=== PATIENT | female | born 1940 | race Caucasian/White ===

== ENCOUNTER 2020-01-17 12:41 | Outpatient (CLI) | payer MEDICARE, SELFPAY ==
--- NOTE | 2020-01-17 12:47 | US_ITS ---
WS: [id number] ULTRASOUND THYROID TECHNIQUE: Ultrasound of the thyroid. CLINICAL INFORMATION: MULTINODULAR GOITER COMPARISON: None. FINDINGS: Thyroid: Prior right lobe thyroidectomy. This is unchanged from previous. Normal thyroid isthmus. Lef t thyroid lobe with cystic and solid nodule lower pole measuring 4.9 x 2.1 x 3.5 mm decreased in size from previous. Additional smaller hypoechoic nodules in the left thyroid measuring 3 to 4 mm are stable. These likel y represent incidental colloid cyst. Left thyroid lobe: 2.7 cm x 0.8 cm x 0.7 cm. Isthmus: 0.3 mm. Cervical lymphadenopathy: None. US/US thyroid [id number] IMPRESSION: 1. Stable right thyroidectomy. 2. Previously described cystic and solid complex lower pole left thyroid nodul e measuring has decreased in size today measuring 3.5 x 2.1 x 4.9 mm. Previousl y this measured approximately 11 x 9 mm. Recommend 12 month follow-up. 3. 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
== END 2020-01-17 12:42 | disposition home or self-care (01) ==
LOC: RAD 12:45
PROVIDERS: PCP Internal Medicine; Visit Provider Internal Medicine
DX: E04.2 Nontoxic multinodular goiter (principal)
CPT/HCPCS: 76536

== ENCOUNTER 2020-09-25 19:07 | Inpatient (IN) | payer MEDICARE, SELFPAY ==
[2020-09-25] VITALS (8 sets, daily range): BP systolic 160–178; BP diastolic 73–91; PULSE 95–108; RESP 14–18; TEMP 36.7–37.1; O2SAT 90–92; BMI 22.0
--- NOTE | 2020-09-25 19:13 | XR_ITS ---
WS: [id number] Exam: XR hip LT 2-3V wo/w pel* [id number] Date/Time of Exam: 09/25/2020 7:17 PM Reason For Exam: hip pain There is a subcapital fracture of the left hip. There is superior and anterior displacement of the fe moral neck. 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 Osteopenia. XR/XR hip LT 2-3V wo/w pel* [id number] IMPRESSION: 1. Displaced subcapital fracture of the left hip.
--- NOTE | 2020-09-25 19:14 | XR_ITS ---
WS: [id number] Exam: XR chest 1V portable [id number] Date/Time of Exam: 09/25/2020 7:17 PM Reason For Exam: cp Comparison 05/07/2017. The lungs are fully expanded and clear. Cardiac enlargement unchanged. Large hiatal hernia. No pleura l effusions. The mediastinum is normal in contour. Bony structures are intact. Monitoring leads super impose the chest. XR/XR chest 1V portable [id number] IMPRESSION: 1. Cardiac enlargement unchanged. 2. Large hiatal hernia. 3. No acute process noted.
--- NOTE | 2020-09-25 19:15 | ED_ITS ---
HPI - Fall General: Chief Complaint: Fall Stated Complaint: fall Time Seen by Provider: 09/25/20 19:07 Source: patient and EMS Mode of arrival: EMS Limitations: no limitations History of Present Illness: HPI Narrative: 80-year-old female states that she tripped and fell roughly an hour ago. States she landed on her left hip. She states she has not been able to stand since this happened and has hip pain she rates a 7 out of 10. She denies hitting her head. She denies any other injuries. She states it is worse with any type of movement and improved with rest. Associated symptoms-after fall: Denies abdominal pain, chest pain, headache(s) or neck pain Review of Systems Const: Denies: fever(s), chills, body aches or change in appetite Eyes: Denies: blurry vision or eye discomfort ENMT: Denies: throat pain or dental pain Card: Denies: chest pain Resp: Denies: dyspnea GI: Denies: abdominal pain, nausea, vomiting or diarrhea : Denies: dysuria Musc: Reports: joint pain; Denies: neck pain or back pain Skin/Breast: Denies: rash Neuro: Denies: headache(s) Psych: Denies: depression Kendell/Lymph: Denies: easy bruising All/Imm: Denies: urticaria PFSH ED PFSH: Medical History (Updated 09/25/20 @ 19:47 by Bolivar Encarnacion MD) Benign essential HTN GERD (gastroesophageal reflux disease) Hypothyroidism, unspecified Nontoxic multinodular goiter Family History Other Heart disease Thyroid disease Social History Smoking and tobacco status: former smoker Alcohol intake: never Physical Exam Const: COMMON NORMALS: no acute distress, patient oriented x3 and healthy appearing HENMT: COMMON NORMALS: normocephalic and atraumatic HEAD & SCALP: normocephalic and atraumatic Eye: COMMON NORMALS: Equal, round and reactive pupils present and EOMs intact bilaterally PUPIL: Yes Equal, round and reactive pupils present Neck/C-Spine: COMMON NORMALS: full ROM and supple Chest: COMMONS NORMALS: normal inspection of the chest and normal palpation of entire chest wall Resp: COMMON NORMALS: normal respiratory effort, No retractions, No use of accessory muscles and clear to auscultation bilaterally AUSCULTATION: clear to auscultation bilaterally Cardio: COMMON NORMALS: regular rate, regular rhythm and No murmurs present (Cardio) RATE: regular rate RHYTHM: regular rhythm GI: COMMON NORMALS: Normal to inspection, nondistended, normoactive bowel sounds present, Soft to palpation, non-tender and no masses PALPATION: Yes Soft to palpation Back/Pelvis: OTHER: Tenderness over left hip with some slight rotation. Distal pulses are intact. Extremity: COMMON NORMALS: normal to inspection and full ROM Neuro: COMMON NORMALS: patient oriented x3, moves all extremities and no focal motor deficits Psych: COMMON NORMALS: mental status grossly normal, Normal thought process present and cooperative THOUGHT PROCESS: Normal thought process present Skin: COMMON NORMALS: no rashes or lesions noted and no wounds GENERAL SKIN EXAM: no rashes or lesions noted Course Vital Signs: Vital signs: Vital Signs Temperature 98.1 F 09/25/20 19:08 Pulse Rate 95 09/25/20 19:08 Respiratory Rate 14 09/25/20 19:08 Blood Pressure 175/87 09/25/20 19:18 Pulse Oximetry 92 09/25/20 19:08 MDM - Fall MDM Narrative: Medical decision making narrative: Patient presents here with a left hip fracture from a fall. She has no signs of any other injuries. I spoke to the hospitalist and will admit. I spoke to the orthopedist who is consulted. Imaging Data^: CXR: Attestation: I personally reviewed and interpreted this imaging study as follows: My impression: no acute abnormality xr L hip: Attestation: I personally reviewed and interpreted this imaging study as follows: My impression: L hip fx Discharge Plan Discharge Patient Disposition: Admitted As Inpatient Clinical Impression: Fall Closed left hip fracture Qualifiers: Encounter type: initial encounter Qualified Code(s): S72.002A - Fracture of unspecified part of neck of left femur, initial encounter for closed fracture Condition: Stable Coding Level of Care Code ED Business Intelligence Developer for Brian Fwarsen Exam Comprehensive
--- NOTE | 2020-09-25 19:32 | ECG_ITS ---
[facility] Test Date: 2020-09-25 Pat Name: Melisa Carrillo Department: Room: Gender: Female Director [employer]: : 1940 Requested By: Bolivar Encarnacion Order Number: [id number] Amilcar MD: Logan Merida M.D. Measurements Intervals [place] Rate: 105 P: 48 AL: 251 QRS: 46 QRSD: 84 T: 51 QT: 309 QTc: 408 Interpretive Statements SINUS TACHYCARDIA WITH FIRST DEGREE AV BLOCK No previous ECG available for comparison Electronically Signed On 09-26-2020 18:01:17 SIPHONER by Logan Merida M.D. [email or web address] [email or web address] [id number]
--- NOTE | 2020-09-25 19:57 | P.HP_ITS ---
Providers/Chief Complaint Primary Care Provider: Howard Castro MD Chief Complaint: fall History of Present Illness Melisa Carrillo is a 80 year old female who presented today after sustaining a fall at home. Patient is stating that she lost her balance when she was maneuvering around her plant pots, she lost her balance because there was a towel underneath the pot which she did not notice while turning and fell on left side of her pelvis on the wooden floor. She did not experience any chest pain shortness of breath nausea, vomiting seizure-like activities before this event. She was awake, no syncopal event was noticed. Diagnostics in the ER revealed left femoral neck fracture, chest x-ray shows hiatal hernia no signs of consolidation prominent vascular markings. He is afebrile, tachycardic and tachypneic complaining of left hip pain 06/08 she had received fentanyl and currently getting 4 mg of morphine in the ER. Dr. Anna has been consulted Review of Systems 2 Const: Denies: fever(s) or chills Eyes: Denies: change in vision ENMT: Denies: throat pain Card: Denies: chest pain Resp: Denies: dyspnea GI: Denies: abdominal pain : Denies: flank pain Musc: Denies: neck pain Skin/Breast: Denies: rash Neuro: Denies: headache(s) Psych: Denies: anxiety Endo: Denies: polyuria Kendell/Lymph: Denies: easy bruising All/Imm: Denies: urticaria Medications/Allergies Home Medications Medication Instructions Recorded Confirmed Last Taken Type albuterol sulfate 90 mcg/actuation 1 inh INHALATION QID PRN #3 device 11/29/19 Unknown Rx aerosol inhaler calcitonin (salmon) 200 1 spray INTRANASAL (ALT) DAILY #3 11/29/19 Unknown Rx unit/actuation nasal spray each budesonide-formoterol HFA 160 INHALATION 01/17/20 01/17/20 Unknown History mcg-4.5 mcg/actuation aerosol inhaler amlodipine 2.5 mg tablet 2.5 mg PO DAILY #90 tab 02/06/20 Unknown Rx levothyroxine 75 mcg tablet 75 mcg PO DAILY #90 tab 02/06/20 Unknown Rx meloxicam 15 mg tablet 15 mg PO DAILY #90 tab 02/06/20 Unknown Rx potassium chloride 10 mEq 10 meq PO DAILY 90 Days #90 tab 02/06/20 Unknown Rx tablet,extended release raloxifene 60 mg tablet 60 mg PO DAILY #90 tab 02/06/20 Unknown Rx simvastatin 20 mg tablet 20 mg PO DAILY #90 tab 02/06/20 Unknown Rx triamterene 37.5 1 cap PO DAILY #90 cap 02/06/20 Unknown Rx mg-hydrochlorothiazide 25 mg capsule Allergies Allergy/AdvReac Type Severity Reaction Status Date / Time No Known Allergies Allergy Unverified 01/17/20 10:59 PFSH Acute PFSH: Medical History Benign essential HTN Emphysema, unspecified GERD (gastroesophageal reflux disease) Hyperlipidemia Hypothyroidism, unspecified Nontoxic multinodular goiter Primary osteoarthritis, unspecified hand Surgical History H/O thyroidectomy History of cholecystectomy Family History Other Heart disease Thyroid disease Social History Smoking and tobacco status: former smoker Alcohol intake: never Vitals/I&O/Wt Last Vital Signs Temp 98.1 F 09/25/20 19:08 Pulse 95 09/25/20 19:08 Resp 14 09/25/20 19:08 BP 175/87 09/25/20 19:18 Pulse Ox 92 09/25/20 19:08 Weight last 48 hrs Weight 65.771 kg Physical Exam Narrative: EXAM NARRATIVE: elderly female Currently complaining of pain in her left hip area Sinus tachycardia and tachycardia S1, S2 No murmur appreciated no signs of heart failure No acute respite distress Abdomen soft nontender bowel sound present No vascular compromise of lower extremities Left leg slightly rotated outwards, limited range of motion No neurological deficit Awake alert oriented x3 GCS 15 Lower extremity no edema gangrene or ulcer Data : 09/25/20 19:00 09/25/20 19:00 A&P Assessment and plan (1) Closed left hip fracture: Status: Acute Qualifiers: Encounter type: initial encounter Qualified Code(s): S72.002A - Fracture of unspecified part of neck of left femur, initial encounter for closed fracture (2) Fall: Status: Acute Additional A&P Information Left femoral neck fracture N.p.o., Dr. Butcher consulted We will keep her on D5 half-normal saline maintenance fluid Dilaudid for analgesia along bowel regimen DVT prophylaxis to be decided by orthopedic surgeon after surgery currently I would use SCDs RCRI class I risk no need of preoperative cardiac evaluation Hold levothyroxine for now continue after surgery No signs of syncope, no signs of stroke this is a mechanical fall Hypertension and tachycardia secondary to excessive pain at the time my evaluation she was complaining 06/08, morphine 4 mg was given, I would use Dilaudid along bowel regimen for now DVT prophylaxis SCDs for now N.p.o. Full code Attestations Medical Necessity Statement*: Anticipating stay in the hospital cross more than 2 midnights needs surgical evaluation and intervention Time Spent in Patient Care: (>than 50% of time spent in counselling and/or direct pt care on unit) . 50mins Coding Level of Care Code Acute [facility] Worker for Maryg Fwd Diagnoses Closed left hip fracture S72.002A Encounter type: initial encounter Fall W19.XXXA
[2020-09-25 20:00] LABS: Basophils # 0.1 10^3/uL (0.0-0.1); Basophils % 0.6 %; Eosinophils # 0.2 10^3/uL (0.0-0.8); Eosinophils % 1.4 %; Hematocrit 39.7 % (37.0-47.0); Hemoglobin 12.5 g/dL (11.5-15.3); Lymphocytes # 1.7 10^3/uL (0.8-4.8); Lymphocytes % 16.7 %; Mean Corpuscular HGB Conc 31.5 g/dL (30.0-36.0); Mean Corpuscular Hemoglobin 28.4 pg (28.0-34.0); Mean Corpuscular Volume 90.2 fL (81-99); Mean Platelet Volume 10.6 fL (7.4-10.4); Monocytes # 0.7 10^3/uL (0.2-0.9); Monocytes % 7.1 %; Neutrophils % 73.1 %; Nucleated Red Blood Cells % 0 %; Platelet Count 334 10^3/cmm (130-400); Red Cell Distribution Width 14.6 % (12.1-15.1); White Blood Count 10.4 10^3/uL (4.0-10.0)
[2020-09-25 20:12] LABS: INR 1.09 (0.8-1.2)
[2020-09-25 20:27] LABS: Alanine Aminotransferase 18 U/L (0-33); Albumin Level 3.9 g/dL (3.5-5.2); Alkaline Phosphatase 76 IU/L (35-105); Anion Gap 16.7 (5-19); Aspartate Amino Transferase 27 U/L (0-32); Blood Urea Nitrogen 32 mg/dL (8-23); Calcium 9.3 mg/dL (8.5-10.5); Carbon Dioxide 24 mmol/L (22-29); Chloride 103 mmol/L (98-107); Globulin 3.7 g/dL (1.3-4.6); Glucose 108 mg/dL (65-115); Osmolality Calculated 297 mOsm/kg (285-295); Potassium 3.7 mmol/L (3.5-5.1); Sodium 140 mmol/L (136-145); Total Bilirubin 0.3 mg/dL (0.15-1.2); Total Protein 7.6 g/dL (6.6-8.7)
[2020-09-25] MEDS: morphine 4 mg/mL SDV 1 mL IVP ×2 (20:27→21:29)
[2020-09-25 21:04] LABS: SARS Covid-2 Antigen Negative (Negative)
--- NOTE | 2020-09-25 21:32 | PC.NURSE ---
Oxygen withdrawn for pt to drink water. O2 sats dropped from 92% to 83% - pt states she in not on oxygen at home. Pt oxygen reapplied at [facility].
--- NOTE | 2020-09-25 21:54 | PC.NURSE ---
Report called to Beth ASTUDILLO - all questions answered. Pt transported on [facility] via [facility].
[2020-09-25] MEDS: HYDROmorphone 1 mg/mL INJ 1 mL IVP (22:53)
[2020-09-25] MEDS: dextrose 5%-sod chloride 0.45% 1,000 ML 30 ML IV (22:53)
[2020-09-25 23:25] LABS: Bilirubin Urine Neg (Negative); Blood Urine Neg (Negative); Glucose Urine UA Norm (Normal); Ketones Urine Negative (Negative); Protein Urine Neg (Negative); Urine Appearance Cloudy (CLEAR); Urine Color Yellow (Yellow); Urobilinogen Urine Norm (Negative)
[2020-09-25 23:26] LABS: Add Urine Culture? Yes; Add Urine Microscopic? YES; Bacteria Urine 4+ /hpf; Leukocyte Esterase Urine Negative (Negative); Nitrate Urine Positive (Negative)
[2020-09-26] VITALS (35 sets, daily range): BP systolic 108–176; BP diastolic 55–113; PULSE 75–116; RESP 15–29; TEMP 36.6–37; O2SAT 87–99
[2020-09-26 02:38] LABS: Basophils % 0.3 %; Eosinophils # 0.1 10^3/uL (0.0-0.8); Eosinophils % 0.5 %; Hematocrit 38.1 % (37.0-47.0); Hemoglobin 11.9 g/dL (11.5-15.3); Lymphocytes # 0.8 10^3/uL (0.8-4.8); Lymphocytes % 7.5 %; Mean Corpuscular HGB Conc 31.2 g/dL (30.0-36.0); Mean Corpuscular Hemoglobin 28.1 pg (28.0-34.0); Mean Corpuscular Volume 89.9 fL (81-99); Mean Platelet Volume 9.9 fL (7.4-10.4); Monocytes # 0.5 10^3/uL (0.2-0.9); Monocytes % 4.9 %; Neutrophils # 9.16 10^3/uL (1.8-7.7); Neutrophils % 86.4 %; Nucleated Red Blood Cells % 0 %; Platelet Count 257 10^3/cmm (130-400); Red Blood Count 4.24 10^6/uL (4.1-5.3); Red Cell Distribution Width 14.5 % (12.1-15.1); White Blood Count 10.6 10^3/uL (4.0-10.0)
[2020-09-26] MEDS: HYDROmorphone 1 mg/mL INJ 1 mL 2 MG IVP ×2 (02:40→08:34)
[2020-09-26 03:08] LABS: Anion Gap 13.6 (5-19); Blood Urea Nitrogen 30 mg/dL (8-23); Calcium 8.9 mg/dL (8.5-10.5); Carbon Dioxide 28 mmol/L (22-29); Chloride 104 mmol/L (98-107); Glucose 142 mg/dL (65-115); Osmolality Calculated 303 mOsm/kg (285-295); Potassium 3.6 mmol/L (3.5-5.1); Sodium 142 mmol/L (136-145)
[2020-09-26] MEDS: ondansetron 2 mg/ML SDV 2 mL 4 MG IVP ×3 (03:33→17:24)
[2020-09-26] MEDS: sennosides-docusate Tablet 1 TAB PO (08:27)
[2020-09-26] MEDS: amlodipine 5 mg Tablet 2.5 MG PO (08:27)
--- NOTE | 2020-09-26 09:39 | PC.NURSE ---
Berenice ASTUDILLO from Surgery here to take patient to Surgery. Patient transferred to Preop via bed.
--- NOTE | 2020-09-26 09:42 | P.PN_ITS ---
Subjective Subjective: Interval history: Patient going off the floor in OR Medications: Reviewed: Yes Vitals/I&O/Wt Last Vital Signs Temp 97.8 F 09/26/20 21:13 Pulse 94 09/26/20 21:13 Resp 18 09/26/20 21:13 BP 113/60 09/26/20 21:13 Pulse Ox 92 09/26/20 21:13 09/26/20 09/26/20 09/27/20 14:59 22:59 06:59 Intake Total 160 / 160 2200.0 / 2360.0 Output Total 100 / 100 Balance 160 / 160 2100.0 / 2260.0 Weight last 48 hrs Weight 65.771 kg Physical Exam Narrative: EXAM NARRATIVE: Full examination not performed Urinary Catheter Management^: Cardenas: Cath Placed During This Visit: yes Reason for Continuing Indwelling Catheter: Required Immobilization for Trauma or Surgery or Anesthesia Urinary Catheter Date of Insertion: 09/25/20 Urinary Catheter Time of Insertion: 23:04 Data : 09/26/20 02:20 09/26/20 02:20 A&P Assessment and plan (1) Closed left hip fracture: Status: Deleted Qualifiers: Encounter type: initial encounter Qualified Code(s): S72.002A - Fracture of unspecified part of neck of left femur, initial encounter for closed fracture (2) Fall: Status: Acute Additional A&P Information Left femoral neck fracture - In OR - Follow up labs in am - Resume medication in am - pain control DVT ppx - per ortho Full code Attestations Medical Necessity Statement*: Wiill continue hospitalizaton for managemnet of post op Time Spent in Patient Care: less than 15 minutes Coding Level of Care Code Acute Superintendent Storage Area for Chg Fwd Diagnoses Closed left hip fracture S72.002A Encounter type: initial encounter Fall W19.XXXA
--- NOTE | 2020-09-26 09:46 | PM.CONSULT ---
Providers/Reason For Consult Consulting Physican/Specialty*: Lucho Anna MD: Orthopedic surgery Reason for Consult*: Left femoral neck fracture Attending Physician: Shannon Gabriel Primary Care Provider: Howard Castro MD History of Present Illness History of Present Illness Melisa Carrillo is a 80 year old female tripped over a towel around [facility] in her house landing on her left hip. She described immediate pain and was transferred to our emergency room. Radiographs revealed displaced femoral neck fracture. She has been admitted to medicine for management of her fracture. Patient was previously ambulatory and actually even dance for recreation. She did not use a walker or cane. Meds/Allergies Home Medications and Allergies Home Medications Medication Instructions Recorded Confirmed Last Taken Type albuterol sulfate 90 mcg/actuation 1 inh INHALATION QID PRN #3 device 11/29/19 09/26/20 Unknown Rx aerosol inhaler calcitonin (salmon) 200 1 spray INTRANASAL (ALT) DAILY #3 11/29/19 09/26/20 Unknown Rx unit/actuation nasal spray each budesonide-formoterol HFA 160 2 puff INHALATION BID 01/17/20 09/26/20 Unknown History mcg-4.5 mcg/actuation aerosol inhaler amlodipine 2.5 mg PO DAILY@09/26/20 09/26/20 Unknown History calcium carbonate [Calcium 600] 600 mg PO BID 09/26/20 09/26/20 Unknown History levothyroxine [Synthroid] 75 mcg PO DAILY@09/26/20 09/26/20 Unknown History loratadine [Claritin] 20 mg PO DAILY@09/26/20 09/26/20 Unknown History meloxicam 15 mg PO DAILY@09/26/20 09/26/20 Unknown History multivitamin 1 tab PO DAILY@09/26/20 09/26/20 Unknown History potassium chloride 10 meq PO DAILY@09/26/20 09/26/20 Unknown History raloxifene 60 mg PO DAILY@09/26/20 09/26/20 Unknown History simvastatin 20 mg PO DAILY@09/26/20 09/26/20 Unknown History triamterene-hydrochlorothiazid 1 cap PO DAILY@09/26/20 09/26/20 Unknown History Allergies Allergy/AdvReac Type Severity Reaction Status Date / Time No Known Allergies Allergy Verified 01/28/21 09:05 Current Medications Current Medications Generic Name Dose Route Start Last Admin Trade Name Freq PRN Reason Stop Dose Admin Amlodipine Besylate 2.5 mg 09/26/20 09:00 09/26/20 08:27 Amlodipine 5 Mg Tablet PO 2.5 mg DAILY SHARA Administration Hydromorphone HCl 2 mg 09/26/20 02:03 09/26/20 08:34 Hydromorphone 1 Mg/Ml Inj 1 Ml IVP 2 mg Q4H PRN Administration pain Dextrose/Sodium Chloride 1,000 mls @ 30 mls/hr 09/25/20 22:00 09/25/20 22:53 Dextrose 5%-Sod Chloride 0.45% IV 30 mls/hr .Q24H SHARA Administration Ondansetron HCl 4 mg 09/26/20 03:29 09/26/20 08:31 Ondansetron 2 Mg/Ml Sdv 2 Ml IVP 4 mg Q6H PRN Administration NAUSEA AND VOMITING Senna/Docusate Sodium 1 tab 09/26/20 09:00 09/26/20 08:27 Sennosides-Docusate Tablet PO 1 tab DAILY SHARA Administration PFSH Acute PFSH: Medical History Benign essential HTN Emphysema, unspecified GERD (gastroesophageal reflux disease) Hyperlipidemia Hypothyroidism, unspecified Nontoxic multinodular goiter Primary osteoarthritis, unspecified hand Surgical History H/O thyroidectomy History of cholecystectomy Family History Other Heart disease Thyroid disease Social History Smoking and tobacco status: former smoker Alcohol intake: never Vitals/I&O/Wt Last Vital Signs Temp 98.3 F 09/26/20 07:24 Pulse 82 09/26/20 07:24 Resp 20 H 09/26/20 08:34 BP 136/71 09/26/20 07:24 Pulse Ox 92 09/26/20 07:24 09/25/20 09/26/20 09/26/20 22:59 06:59 14:59 Output Total 450 / 450 Balance -450 / -450 Weight last 48 hrs Weight 145 lb Physical Exam Narrative: EXAM NARRATIVE: Melisa is a pleasant elderly female in no acute distress. She answers questions appropriately She has shortening and external rotation of the left hip. There is exquisite pain with motion of the left hip. No pain with motion or palpation of her upper extremities or right lower extremities No tenderness over her cervical thoracic or lumbar spine. She will flex extend her toes and her ankle on the left. Strong left dorsalis pedis pulse. Urinary Catheter Management^: Cardenas: Cath Placed During This Visit: yes Reason for Continuing Indwelling Catheter: Required Immobilization for Trauma or Surgery or Anesthesia Urinary Catheter Date of Insertion: 09/25/20 Urinary Catheter Time of Insertion: 23:04 Data Imaging^: Xray Ortho: My impression: I personally reviewed radiographs of the left hip from last night. The patient has a displaced left femoral neck fracture A&P Assessment and plan (1) Left displaced femoral neck fracture: I discussed options with the patient and granddaughter Kely.. I told them possible treatments for displaced femoral neck fracture would include nonoperative treatment, open reduction internal fixation, or hemiarthroplasty. I told them without treatment the patient would experience ongoing of pain that would limit mobility. This would require pain medications and place her at medical risks due to prolonged periods of bed rest. I discussed the possibility of open reduction internal fixation with pins. I warned them that for displaced fractures of the risk of nonunion and malunion is exceptionally high. In addition there is a high likelihood that the blood applied to the femoral head has been disrupted and that even with successful stabilization of the fracture the femoral head will go on to . I finally discussed the possibility of hemiarthroplasty. I think this would give the patient the greatest chance of being immediately mobilized. I discussed risk of a bleeding and a possible need for blood products. I discussed risk of deep venous thromboses and pulmonary emboli and the need for anticoagulation. I discussed the use of the TXA that may be utilized to diminish blood loss. I discussed risk of component failure and loosening that could require revision. I discussed the risk of dislocation and a bipolar arthroplasty which is quite unlikely. After a long discussion of options they agree to hemiarthroplasty of the hip. I told him ultimately the patient will likely require senior living placement. Status: Acute Coding Level of Care Code Acute Furnace Attendant for [facility] Fwd Diagnoses Left displaced femoral neck fracture S72.002J
--- NOTE | 2020-09-26 10:14 | ANES.PREANE2 ---
Pre-Anesthetic Assessment Pre-Anesthetic Assessment: Height/Weight: Height 1.73 m Weight 65.771 kg Temp Pulse Resp BP Pulse Ox 98.6 F 84 18 143/75 94 09/26/20 09:54 09/26/20 09:54 09/26/20 09:54 09/26/20 09:54 09/26/20 09:54 Proposed Procedure: Operation Date: 09/26/20 13:10 Proposed Procedures p Hemiarthroplasty Hip(Left) - Lucho Anna MD Was Beta Rodrigo taken within 24 hours: N/A Last intake: Intake Last Liquid Date 09/25/20 Last Liquid Time 17:00 Last Solid Date 09/25/20 Last Solid Time 13:00 Social: Social History: No alcohol and No tobacco Comment: h/o smoking Exam: Pre-Anes Outpt Exam: alert, oriented x 3 and regular rate & rhythm Airway: Submandibular: WNL Cervical ROM: WNL MP: 2 Dentition: False Pulmonary: Pulmonary: COPD CV/HEM: CV/HEM: HTN GI: GI: GERD Metabolic: Metabolic: Thyroid Anesthetic Plan: ASA status: 3 Anesthesia: Regional (specify below) Other: SAB Risk of > 500 ml blood loss (7ml/kg in children): Yes, adequate IV access and fluids planned Meds/Allergies Current Medications: Current Medications Generic Name Dose Route Start Last Admin Trade Name Freq PRN Reason Stop Dose Admin Amlodipine Besylat e 2.5 mg 09/26/20 09:00 09/26/20 08:27 Amlodipine 5 Mg Tablet PO 2.5 mg DAILY SHARA Administration Hydromorphone HCl 2 mg 09/26/20 02:03 09/26/20 08:34 Hydromorphone 1 Mg/Ml Inj 1 Ml IVP 2 mg Q4H PRN Administration pain Dextrose/Sodium Ch loride 1,000 mls @ 30 ml s/hr 09/25/20 22:00 09/25/20 22:53 Dextrose 5%-Sod Chloride 0.45% IV 30 mls/hr .Q24H SHARA Administration Ondansetron HCl 4 mg 09/26/20 03:29 09/26/20 08:31 Ondansetron 2 Mg /Ml Sdv 2 Ml IVP 4 mg Q6H PRN Administration NAUSEA AND VOMITI NG Senna/Docusate Sod ium 1 tab 09/26/20 09:00 09/26/20 08:27 Sennosides-Docus ate Tablet PO 1 tab DAILY SHARA Administration PFSH Anesthesia PFSH: Medical History Benign essential HTN Emphysema, unspecified GERD (gastroesophageal reflux disease) Hyperlipidemia Hypothyroidism, unspecified Nontoxic multinodular goiter Primary osteoarthritis, unspecified hand Surgical History H/O thyroidectomy History of cholecystectomy Family History Other Heart disease Thyroid disease Social History Smoking and tobacco status: former smoker Alcohol intake: never Data Anesthesia CBC & Chem 7: 09/26/20 02:20 09/26/20 02:20 Other Labs: Laboratory Results - last 48 hr 09/25/20 09/25/20 09/25/20 19:00 19:00 19:00 WBC 10.4 H RBC 4.40 Hgb 12.5 Hct 39.7 MCV 90.2 MCH 28.4 MCHC 31.5 RDW 14.6 Plt Count 334 MPV 10.6 H Neut % (Auto) 73.1 Lymph % (Auto) 16.7 [place] % (Auto) 7.1 Eos % (Auto) 1.4 Baso % (Auto) 0.6 Neut # (Auto) 7.60 Lymph # (Auto) 1.7 [place] # (Auto) 0.7 Eos # (Auto) 0.2 Baso # (Auto) 0.1 Nucleated RBC % (auto) 0 Nucleated RBCs # 0.0 PT 14.40 INR 1.09 Sodium 140 Potassium 3.7 Chloride 103 Carbon Dioxide 24 Anion Gap 16.7 BUN 32 H Creatinine 1.5 H GFR Calculation Not Reportable Glucose 108 Calculated Osmolality 297 H Calcium 9.3 Total Bilirubin 0.3 AST 27 ALT 18 Alkaline Phosphatase 76 Total Protein 7.6 Albumin 3.9 Globulin 3.7 Urine Color Urine Appearance Urine pH Ur Specific [place] Urine Protein Urine Glucose (UA) Urine Ketones Urine Blood Urine Nitrate Urine Bilirubin Urine Urobilinogen Ur Leukocyte Esterase Urine RBC Urine WBC Ur Squamous Epith Cells Amorphous Sediment Urine Bacteria SARS-CoV-2 Ag (Rapid) 09/25/20 09/25/20 09/26/20 20:00 22:50 02:20 WBC 10.6 H RBC 4.24 Hgb 11.9 Hct 38.1 MCV 89.9 MCH 28.1 MCHC 31.2 RDW 14.5 Plt Count 257 MPV 9.9 Neut % (Auto) 86.4 Lymph % (Auto) 7.5 [place] % (Auto) 4.9 Eos % (Auto) 0.5 Baso % (Auto) 0.3 Neut # (Auto) 9.16 H Lymph # (Auto) 0.8 [place] # (Auto) 0.5 Eos # (Auto) 0.1 Baso # (Auto) 0.0 Nucleated RBC % (auto) 0 Nucleated RBCs # 0.0 PT INR Sodium Potassium Chloride Carbon Dioxide Anion Gap BUN Creatinine GFR Calculation Glucose Calculated Osmolality Calcium Total Bilirubin AST ALT Alkaline Phosphatase Total Protein Albumin Globulin Urine Color Yellow Urine Appearance Cloudy A Urine pH 7.0 Ur Specific [place] 1.000 L Urine Protein Neg Urine Glucose (UA) Norm Urine Ketones Negative Urine Blood Neg Urine Nitrate Positive H Urine Bilirubin Neg Urine Urobilinogen Norm Ur Leukocyte Esterase Negative Urine RBC None Urine WBC 5-10 H Ur Squamous Epith Cells None Amorphous Sediment Not Reportable Urine Bacteria 4+ H SARS-CoV-2 Ag (Rapid) Negative 09/26/20 02:20 WBC RBC Hgb Hct MCV MCH MCHC RDW Plt Count MPV Neut % (Auto) Lymph % (Auto) [place] % (Auto) Eos % (Auto) Baso % (Auto) Neut # (Auto) Lymph # (Auto) [place] # (Auto) Eos # (Auto) Baso # (Auto) Nucleated RBC % (auto) Nucleated RBCs # PT INR Sodium 142 Potassium 3.6 Chloride 104 Carbon Dioxide 28 Anion Gap 13.6 BUN 30 H Creatinine 1.3 H GFR Calculation Not Reportable Glucose 142 H Calculated Osmolality 303 H Calcium 8.9 Total Bilirubin AST ALT Alkaline Phosphatase Total Protein Albumin Globulin Urine Color Urine Appearance Urine pH Ur Specific [place] Urine Protein Urine Glucose (UA) Urine Ketones Urine Blood Urine Nitrate Urine Bilirubin Urine Urobilinogen Ur Leukocyte Esterase Urine RBC Urine WBC Ur Squamous Epith Cells Amorphous Sediment Urine Bacteria SARS-CoV-2 Ag (Rapid) Cardiac Studies: No Data to Display
[2020-09-26] MEDS: sodium chloride 0.9% 1,000 ML 30 ML IV (10:15)
--- NOTE | 2020-09-26 10:59 | PC.CHAP ---
Pastoral Care Encounter/Spiritual Assessment Type of Contact [] Declined hi low truck driver visit [] Patient/Family/Request visit [] Outpatient visit [X] Follow-up visit [] Physician referral [] Code/Alert [] Routine visit [] Staff referral [] Actively dying [] Patient sleeping [] Family support [] [] Out of room [] Palliative care [] [] Receiving care in room [] Pre-surgical visit [] Trauma [] Long length of stay [] ICU visit [x] Other: in surgery Relational/Emotional Strength [] Patient feels connected with others/family/visitors/staff [] Distress [] Loneliness/isolation [] Abandonment Spirituality of Patient [] Person of Karyn [] Attends Sabianism of their Karyn [] Believes in Prayer [] Reads Bible or Shinto materials [] There are Spiritual issues to be addressed Valet Cashier Interventions [] Prayer [] Active listening [] Non-anxious presence [] Spiritual/emotional support [] Crisis/trauma care [] Spiritual counseling [] Bereavement support [] Provided bereavement packet [] Provided Bible/devotional materials [] Provided toy/stuffed animal, coloring book to patient or family member [] Provided Communion [] Anointing/[place] [] Salvation [] Completed spiritual assessment [] Other: Impact on Illness or Injury [] Angry [] Fearful [] Anxious [] Often cries [] Exhaustion [] Unable to work [] Unable to attend zoroastrian [] Unable to walk/stand [] Unable to read [] Unable to drive [] Unable to eat/drink [] Unable to sleep [] Unable to be with family [] Patient intubated [] Other: Summary in surgery Time spent with patient 5 mins
--- NOTE | 2020-09-26 15:55 | XR_ITS ---
WS: [id number] Exam: XR pelvis 1-2V* [id number] Date/Time of Exam: 09/26/2020 3:59 PM Reason For Exam: Total hip arthroplasty A left hip prosthesis has been placed. Postoperative changes in the adjacent soft tissues. The pelvis is intact. Mild DJD of the right hip. XR/XR pelvis 1-2V* [id number] IMPRESSION: 1. Recent placement of a left hip prosthesis. Postoperative soft tissue changes .
--- NOTE | 2020-09-26 15:56 | PM.OP ---
Operative Report Date of procedure: September 26, 2020 Pre-op Diagnosis: Left displaced femoral neck fracture Post-op diagnosis: same Post-op Findings: Same Procedure Done: Left bipolar hip Implants: Nay 1) Securefit SHAFFER collored stem, size 7 2) 45 bipolar femoral head 3) 28mm/standard neck length femoral head Pathology: none sent Surgeon: Lucho Anna Anesthesia: Nerve Block (Spinal) Estimated blood loss (mL): 100 Findings: Patient had a displaced fracture of the left femoral neck Condition: stable Disposition: PACU Procedure: The patient was taken to the operating room and a final l anesthesia was provided by the anesthesia service. They were given 2 g of Ancef. and positioned in the lateral position with the hip exposed. A 10 cm long incision was made over the greater trochanter with a scalpel blade. Dissection was carried down through the fascia noris to the greater trochanter. The anterior two thirds of gluteus medius and minimus were elevated off the greater trochanter with electrocautery. The capsule was divided T like fashion. The hip was externally rotated and the neck brought up into the wound. An oscillating saw was really used to resect the neck just above the level of the lesser trochanter. The femoral head was removed and the acetabulumt sized to a 45 mm bipolar head. Sequential reaming and broaching of the canal was accomplished up to a size 7. A size 7 [place] Securefit SHAFFER stem was press fit into place. A trial reduction with a standard mm neck provided excellent stability. The final head and neck were placed and the hip reduced. The anterior capsule were reapproximated with 1 Ethibond. The gluteus medius and minimus were repaired through the greater trochanter with 5 Ethibond and reinforced with 1 Ethibond. The fascia noris was closed with 0 Stratafix. The subcutaneous tissues were closed with 2-0 Stratafixl. The skin was closed with a running 3-0 Stratafix. Sterile dressings were applied. The patient was placed in abduction pillow and taken recovery room in stable condition.
[2020-09-26] MEDS: meperidine 50 mg/mL INJ 12.5 MG IVP (16:19)
--- NOTE | 2020-09-26 16:26 | P.ANESPOST_ITS ---
Inpatient post-anesthesia follow up: Airway intact: Yes Vital signs: Temperature 98.2 F Pulse Rate [Monito r] 95 Pulse Rate 93 Respiratory Rate 24 Blood Pressure [Ri ght Arm] 175/87 Blood Pressure 136/79 Pulse Oximetry 91 Oxygen Delivery Me thod Nasal Cannula Oxygen Flow Rate 3 Fraction of Inspir ed Oxygen Hydration adequate: Yes Nausea and vomiting: No Pain level: 1 [place] tional Comments: Some shivering and difficulty reading SpO2, patient denies SOB.
[2020-09-26] MEDS: ipratropium-albuterol 3 mL Neb INHALATION (17:00)
[2020-09-26] MEDS: glycopyrrolate 0.2 mg/mL SDV 2 mL IV (17:00)
--- NOTE | 2020-09-26 17:18 | SUR.PHASEI ---
1052 PT TO PACU AWAKE ALERT ON 4LNC SPINAL ANESTHESIA WITH MAC, PT TALKATIVE RESP 20-24 SATS 90% SPINAL LEVEL ASSESSED PT HAS NORMAL SENSATION TO T-12 LEVEL WITH GROSS TOE MOVEMENT BILAT ABD PILLOW IN PLACE FIRST ICE TO LT HIP DRESSING WHICH IS D/I DISTAL FOOT PINK WARM CONTINOUS O2 SAT PROBE TO EXT WITH GOOD WAVEFORM, PT SHIVERING AND C/O OF COLD, DENIES PAIN AND NAUSEA, WARM BLANKETS X 4 TO PT. 1610 X RAY DONE, UNABLE TO GET ACCURATE SAT READING PT IS SHIVERING, UNCONTROLLED AFTER X RAY, DR ROE AT BEDSIDE, ORDERS FOR DEMERAL IV IF SHIVERING CONTINUES, 1619 PT CONTINUES TO SHIVER SEE MED GIVEN PT SATS ALSO READING 85% ON 5LNC 1625 SEE ALBUTEROL NEB GIVEN ORDERED WITH 8L MASK SATS QUICKLY UP TO 97% NO DISTRESS NOTED. BILAT LUNGS CLEAR WITH DIMINISHED BASES AND DIMINISHED EXPIRATIONS TO ALL LOBES. 1645 SATS NOT MAINTAINED ON 5LN NC PT ENCOURAGED TO SLOW RESP AND PURSED SELINA EXHALE TEACHING DONE, DR ROE AT BEDSIDE, PT PLACED ON 7L OXY MASK , SATS QUICKLY UP AND DUONEB TX ORDERED AND ALSO ROBINAL IVP 1700 SEE MEDS GIVEN ORDERED PT AWAKE ALERT TALKATIVE DENIES ANY SHORTNESS OF BREATH, PT NO SHIVERING NOW, GOOD WAVEFORM NOTED TO O2 SAT PROBE, TO MULTIPLE EXTRMITIES, NOW WITH 8L AEROSOL MASK AT 97%, 1727 PT GIVEN ZOFRAN EARLIER FOR NAUSEA WHICH PT NOW STATES IS BETTER, PT SATS 94% ON4LNC NOW , NO DISTRESS , LUNG SOUNDS UNCHANGED , REPORT CALLED AND UPDATED PT TO FLOOR PER BED 1740 PT TO ROOM ASKING FOR HER CELL PHONE, AND SIPS OF SODA, PT VERY ALERT AND TALKATIVE WITH STAFF, LT HIP DRESSING D/I WITH FIRST ICE IN PLACE, HANDOFF AT BEDSIDE WITH CHAUNCEY ASTUDILLO.
[2020-09-26] MEDS: sodium chloride 0.9% 1,000 ML 100 ML IV (18:13)
[2020-09-26] MEDS: albuterol 8 gm MDI 1 PUFF INHALATION ×2 (18:13→20:44)
[2020-09-26] MEDS: CELEcoxib 200 mg Capsule PO (18:13)
[2020-09-26] MEDS: acetaminophen 500 mg Tablet 1000 MG PO (18:13)
[2020-09-26] MEDS: gabapentin 300 mg Capsule PO (18:13)
[2020-09-26] MEDS: sennosides-docusate Tablet 2 TAB PO (18:13)
[2020-09-26] MEDS: famotidine 20 mg Tablet PO (21:09)
[2020-09-26] MEDS: HYDROcodone-acetaminophen 5-325 mg Tablet 1 TAB PO (21:09)
[2020-09-27] VITALS (9 sets, daily range): BP systolic 116–167; BP diastolic 66–76; PULSE 67–89; RESP 16–18; TEMP 36.3–36.8; O2SAT 91–98
[2020-09-27] MEDS: acetaminophen 500 mg Tablet 1000 MG PO ×2 (03:01→09:45)
[2020-09-27] MEDS: sodium chloride 0.9% 1,000 ML 100 ML IV (03:02)
[2020-09-27] MEDS: levothyroxine 75 mcg Tablet PO (05:33)
[2020-09-27] MEDS: CELEcoxib 200 mg Capsule PO ×2 (05:33→17:47)
--- NOTE | 2020-09-27 07:52 | P.PN_ITS ---
Subjective Subjective: Interval history: Pain controlled with meds. Good po intake. Cardenas dc'd Vitals/I&O/Wt Last Vital Signs Temp 98.1 F 09/27/20 04:00 Pulse 80 09/27/20 04:00 Resp 17 09/27/20 04:00 BP 116/66 09/27/20 04:00 Pulse Ox 91 09/27/20 04:00 09/26/20 09/27/20 09/27/20 22:59 06:59 14:59 Intake Total 2150.0 / 2310.0 1551.667 / 3861.667 Output Total 100 / 100 650 / 750 Balance 2050.0 / 2210.0 901.667 / 3111.667 Weight last 48 hrs Weight 145 lb Physical Exam Narrative: EXAM NARRATIVE: Left hp dressing clean and dry. Minimal thigh sw elling Urinary Catheter Management^: Cardenas: Cath Placed During This Visit: yes, but has since been removed by the nurse Reason for Continuing Indwelling Catheter: Perioperative Use in Selected Surgeries Urinary Catheter Date of Insertion: 09/25/20 Urinary Catheter Time of Insertion: 23:04 Date Urinary Catheter Removed: 09/27/20 Time Urinary Catheter Discontinued: 06:00 Data : 09/26/20 02:20 09/26/20 02:20 A&P Assessment and plan (1) Left displaced femoral neck fracture: Status: Resolved (2) Postoperative state: Continue to mobilize with therapy. Patient lives alone and will need SNF unless she can arrange for family or friends to provided care at home. Status: Acute Attestations Medical Necessity Statement*: As per medicine Coding Level of Care Code Acute Electrical Logging Engineer for Brian Traore Diagnoses Left displaced femoral neck fracture S72.002A Postoperative state Z98.890
[2020-09-27] MEDS: albuterol 8 gm MDI 1 PUFF INHALATION ×3 (07:58→20:32)
[2020-09-27] MEDS: loratadine 10 mg Tablet 20 MG PO (08:07)
[2020-09-27] MEDS: famotidine 20 mg Tablet PO ×2 (08:07→17:47)
[2020-09-27] MEDS: HYDROcodone-acetaminophen 5-325 mg Tablet 1 TAB PO ×3 (08:07→21:15)
[2020-09-27] MEDS: potassium chloride ER 10 mEq Tablet PO (08:07)
[2020-09-27] MEDS: atorvastatin 40 mg Tablet 20 MG PO (08:08)
[2020-09-27] MEDS: multivitamin therapeutic Tablet 1 TAB PO (08:08)
[2020-09-27] MEDS: gabapentin 300 mg Capsule PO ×2 (08:08→17:47)
[2020-09-27] MEDS: amlodipine 5 mg Tablet 2.5 MG PO (08:17)
[2020-09-27] MEDS: sennosides-docusate Tablet 2 TAB PO ×2 (08:17→17:47)
[2020-09-27] MEDS: calcitonin nasal 200 unit/spray 3.7 mL Btl 1 SPRAY NOSTRIL-AL (09:44)
[2020-09-27] MEDS: lanolin oint 7 gm 1 APPLIC TOPICAL (10:34)
--- NOTE | 2020-09-27 18:35 | PM.PN ---
Subjective Subjective: Interval history: patient was complaining of heartburn. No additional complaints overnight. No fever, chills, nausea vomiting. Medications: Reviewed: Yes Vitals/I&O/Wt Last Vital Signs Temp 97.3 F L 09/27/20 16:00 Pulse 75 09/27/20 16:00 Resp 18 09/27/20 16:00 BP 167/74 09/27/20 16:00 Pulse Ox 92 09/27/20 16:00 09/27/20 09/27/20 09/27/20 06:59 14:59 22:59 Intake Total 1551.667 / 3861.667 100 / 100 360 / 460 Output Total 650 / 750 300 / 300 Balance 901.667 / 3111.667 -200 / -200 360 / 160 Weight last 48 hrs Weight 65.771 kg Physical Exam Narrative: EXAM NARRATIVE: General -alert awake and oriented HEENT -grossly unremarkable Chest-clear to auscultation bilaterally CVS -regular rate rhythm Abdomen -soft nontender nondistended Extremities -postop pain Urinary Catheter Management^: Cardenas: Cath Placed During This Visit: yes, but has since been removed by the nurse Reason for Continuing Indwelling Catheter: Perioperative Use in Selected Surgeries Urinary Catheter Date of Insertion: 09/25/20 Urinary Catheter Time of Insertion: 23:04 Date Urinary Catheter Removed: 09/27/20 Time Urinary Catheter Discontinued: 06:00 Data : 09/26/20 02:20 09/26/20 02:20 Micro: Microbiology 09/25/20 22:50 Urine Culture - Preliminary Urine,Clean Catch Gram Negative Rods A&P Assessment and plan (1) Closed left hip fracture: Status: Deleted Qualifiers: Encounter type: initial encounter Qualified Code(s): S72.002A - Fracture of unspecified part of neck of left femur, initial encounter for closed fracture (2) Fall: Status: Acute Additional A&P Information Left femoral neck fracture - POD 1 - Follow up labs in am - pain control - PT/OT consult Acute kidney injury - Creatinine 1.3 - IVF at 100cc/hr - Repeat CMP in am - Renal dosing. Hypertension - Resume Norvasc GERD - Protonix 40 mg PO daily DVT ppx - per ortho Full code Attestations Medical Necessity Statement*: will require further hospitalization for management of acute renal failure, postop and placement Time Spent in Patient Care: Greater than 35 minutes (>than 50% of time spent in counselling and/or direct pt care on unit). Coding Level of Care Code Acute Lawn Sprinkler Servicer for Maryg Fwd Diagnoses Closed left hip fracture S72.002A Encounter type: initial encounter Fall W19.XXXA
[2020-09-27] MEDS: enoxaparin 40 mg/0.4 mL Syringe SUBCUT (21:15)
[2020-09-28] VITALS (9 sets, daily range): BP systolic 110–172; BP diastolic 57–82; PULSE 60–98; RESP 18–20; TEMP 36.4–36.9; O2SAT 92–98
[2020-09-28] MEDS: acetaminophen 500 mg Tablet 1000 MG PO ×3 (03:18→17:03)
[2020-09-28] MEDS: HYDROcodone-acetaminophen 5-325 mg Tablet 1 TAB PO (03:48)
--- NOTE | 2020-09-28 05:25 | NUR.SHIFT ---
Patient has complained of pain, which is well controlled by hydrocodone x2. Patient has been afibrile. Good pulse to lower extremities and warmth. Patient is unable to have O2 titrated due to current oxygen demands.
[2020-09-28 05:35] LABS: Basophils # 0.1 10^3/uL (0.0-0.1); Basophils % 0.7 %; Eosinophils # 0.2 10^3/uL (0.0-0.8); Hematocrit 31.3 % (37.0-47.0); Hemoglobin 9.9 g/dL (11.5-15.3); Lymphocytes # 0.6 10^3/uL (0.8-4.8); Lymphocytes % 4.9 %; Mean Corpuscular HGB Conc 31.6 g/dL (30.0-36.0); Mean Corpuscular Hemoglobin 28.3 pg (28.0-34.0); Mean Corpuscular Volume 89.4 fL (81-99); Mean Platelet Volume 10.4 fL (7.4-10.4); Monocytes # 0.8 10^3/uL (0.2-0.9); Monocytes % 6.5 %; Neutrophils # 10.26 10^3/uL (1.8-7.7); Neutrophils % 85.5 %; Nucleated Red Blood Cells % 0 %; Platelet Count 196 10^3/cmm (130-400); Red Cell Distribution Width 14.4 % (12.1-15.1)
[2020-09-28 05:59] LABS: Alanine Aminotransferase 9 U/L (0-33); Albumin Level 2.9 g/dL (3.5-5.2); Alkaline Phosphatase 65 IU/L (35-105); Anion Gap 15.3 (5-19); Aspartate Amino Transferase 32 U/L (0-32); Blood Urea Nitrogen 32 mg/dL (8-23); Calcium 8.5 mg/dL (8.5-10.5); Carbon Dioxide 23 mmol/L (22-29); Chloride 104 mmol/L (98-107); Globulin 2.8 g/dL (1.3-4.6); Glucose 103 mg/dL (65-115); Osmolality Calculated 295 mOsm/kg (285-295); Potassium 3.3 mmol/L (3.5-5.1); Sodium 139 mmol/L (136-145); Total Bilirubin 0.4 mg/dL (0.15-1.2); Total Protein 5.7 g/dL (6.6-8.7)
[2020-09-28] MEDS: levothyroxine 75 mcg Tablet PO (07:02)
[2020-09-28] MEDS: CELEcoxib 200 mg Capsule PO ×2 (07:02→08:34)
[2020-09-28] MEDS: albuterol 8 gm MDI 1 PUFF INHALATION ×2 (08:03→20:40)
[2020-09-28] MEDS: sennosides-docusate Tablet 2 TAB PO ×2 (08:33→17:04)
[2020-09-28] MEDS: amlodipine 5 mg Tablet 2.5 MG PO (08:33)
[2020-09-28] MEDS: atorvastatin 40 mg Tablet 20 MG PO (08:34)
[2020-09-28] MEDS: famotidine 20 mg Tablet PO (08:34)
[2020-09-28] MEDS: multivitamin therapeutic Tablet 1 TAB PO (08:34)
[2020-09-28] MEDS: loratadine 10 mg Tablet 20 MG PO (08:34)
[2020-09-28] MEDS: potassium chloride ER 10 mEq Tablet PO (08:34)
[2020-09-28] MEDS: calcitonin nasal 200 unit/spray 3.7 mL Btl 1 SPRAY NOSTRIL-AL (08:38)
[2020-09-28] MEDS: cefTRIAXone 1,000 MG in sodium chloride 0.9% (plus) 50 ML 100 MG IV (09:07)
[2020-09-28] MEDS: gabapentin 300 mg Capsule PO ×2 (09:22→17:03)
--- NOTE | 2020-09-28 10:41 | PM.PN ---
Subjective Subjective: Interval history: No overnight issues. Vitals/I&O/Wt Last Vital Signs Temp 98.8 F 09/29/20 07:23 Pulse 90 09/29/20 07:38 Resp 18 09/29/20 07:38 BP 124/63 09/29/20 07:23 Pulse Ox 91 09/29/20 07:38 09/28/20 09/29/20 09/29/20 22:59 06:59 14:59 Intake Total 320 / 610 100 / 710 240 / 240 Output Total 300 / 500 Balance 320 / 410 -200 / 210 240 / 240 Physical Exam Narrative: EXAM NARRATIVE: General -alert awake and oriented HEENT -grossly unremarkable Chest-clear to auscultation bilaterally CVS -regular rate rhythm Abdomen -soft nontender nondistended Extremities -postop pain Urinary Catheter Management^: Cardenas: Cath Placed During This Visit: yes, but has since been removed by the nurse Reason for Continuing Indwelling Catheter: Perioperative Use in Selected Surgeries Urinary Catheter Date of Insertion: 09/25/20 Urinary Catheter Time of Insertion: 23:04 Date Urinary Catheter Removed: 09/27/20 Time Urinary Catheter Discontinued: 06:00 Data : 09/28/20 05:10 09/28/20 05:10 Micro: Microbiology 09/25/20 22:50 Urine Culture - Final Urine,Clean Catch Escherichia coli A&P Assessment and plan (1) Closed left hip fracture: Status: Deleted Qualifiers: Encounter type: initial encounter Qualified Code(s): S72.002A - Fracture of unspecified part of neck of left femur, initial encounter for closed fracture (2) Fall: Status: Acute Additional A&P Information Left femoral neck fracture - POD 2 - Follow up labs in am - pain control - PT/OT consult Acute kidney injury - Creatinine 1.3 - IVF at 100cc/hr - Repeat CMP in am - Renal dosing. - Improving Hypertension - Resume Norvasc GERD - Protonix 40 mg PO daily DVT ppx - per ortho Full code Attestations Medical Necessity Statement*: will continue post op management Coding Level of Care Code Acute Senior User Experience Architect for Chg Fwd Diagnoses Closed left hip fracture S72.002A Encounter type: initial encounter Fall W19.XXXA
--- NOTE | 2020-09-28 14:23 | PC.SOCIAL ---
IM followup explained and copy provided to patient. She verbalized understanding.
[2020-09-28] MEDS: enoxaparin 40 mg/0.4 mL Syringe SUBCUT (22:17)
[2020-09-29] VITALS (9 sets, daily range): BP systolic 117–162; BP diastolic 58–88; PULSE 81–93; RESP 14–18; TEMP 36.5–37.1; O2SAT 84–94
[2020-09-29] MEDS: acetaminophen 500 mg Tablet 1000 MG PO ×3 (04:03→17:05)
--- NOTE | 2020-09-29 05:55 | PC.NURSE ---
Patient has had good feeling and blood flow to her lower left extremity. Patient was able to get out of bed and to the commode with minimal assistance. Pain appears to be well controlled by Tylenol.
[2020-09-29] MEDS: levothyroxine 75 mcg Tablet PO (06:21)
[2020-09-29] MEDS: CELEcoxib 200 mg Capsule PO ×2 (06:21→17:05)
[2020-09-29] MEDS: albuterol 8 gm MDI 1 PUFF INHALATION ×2 (07:37→21:16)
[2020-09-29] MEDS: cefTRIAXone 1,000 MG in sodium chloride 0.9% (plus) 50 ML 100 MG IV (08:53)
[2020-09-29] MEDS: loratadine 10 mg Tablet 20 MG PO (08:54)
[2020-09-29] MEDS: potassium chloride ER 10 mEq Tablet PO (08:54)
[2020-09-29] MEDS: amlodipine 5 mg Tablet 2.5 MG PO (08:54)
[2020-09-29] MEDS: gabapentin 300 mg Capsule PO ×2 (08:55→17:05)
[2020-09-29] MEDS: multivitamin therapeutic Tablet 1 TAB PO (08:55)
[2020-09-29] MEDS: atorvastatin 40 mg Tablet 20 MG PO (08:55)
[2020-09-29] MEDS: calcitonin nasal 200 unit/spray 3.7 mL Btl 1 SPRAY NOSTRIL-AL (11:32)
--- NOTE | 2020-09-29 14:44 | P.PN_ITS ---
Subjective Subjective: Interval history: Doing better today, off oxygen, no fever or chills, no nausea or vomiting Medications: Reviewed: Yes Vitals/I&O/Wt Last Vital Signs Temp 98.1 F 09/29/20 11:30 Pulse 81 09/29/20 11:30 Resp 18 09/29/20 11:30 BP 134/75 09/29/20 11:30 Pulse Ox 91 09/29/20 11:30 09/28/20 09/29/20 09/29/20 22:59 06:59 14:59 Intake Total 320 / 610 100 / 710 290 / 290 Output Total 300 / 500 Balance 320 / 410 -200 / 210 290 / 290 Physical Exam Narrative: EXAM NARRATIVE: General -alert awake and oriented HEENT -grossly unremarkable Chest-clear to auscultation bilaterally CVS -regular rate rhythm Abdomen -soft nontender nondistended Extremities -postop pain Urinary Catheter Management^: Cardenas: Cath Placed During This Visit: yes, but has since been removed by the nurse Reason for Continuing Indwelling Catheter: Perioperative Use in Selected Surgeries Urinary Catheter Date of Insertion: 09/25/20 Urinary Catheter Time of Insertion: 23:04 Date Urinary Catheter Removed: 09/27/20 Time Urinary Catheter Discontinued: 06:00 Data : 09/28/20 05:10 09/28/20 05:10 Micro: Microbiology 09/25/20 22:50 Urine Culture - Final Urine,Clean Catch Escherichia coli A&P Assessment and plan (1) Closed left hip fracture: Status: Deleted Qualifiers: Encounter type: initial encounter Qualified Code(s): S72.002A - Fracture of unspecified part of neck of left femur, initial encounter for closed fracture (2) Fall: Status: Acute Additional A&P Information Left femoral neck fracture - POD 3 ORIF - Follow up labs in am - pain control - PT/OT consult Acute kidney injury on likely CKD stage 3 - Creatinine 1.3 - > 1.3 - Repeat CMP in am - Renal dosing. - Stable E-coli UTI - Rocephin 1g IV daily - [place]-sensitive Hypertension - Resume Norvasc GERD - PPI DVT ppx - per ortho Full code Attestations Medical Necessity Statement*: Continue hospitalization for management of post op hip repair needing placement Time Spent in Patient Care: Greater than 35 minutes Coding Level of Care Code Acute Conditioner Tumbler Operator for Chg Fwd Diagnoses Closed left hip fracture S72.002A Encounter type: initial encounter Fall W19.XXXA
--- NOTE | 2020-09-29 15:56 | PC.CHAP ---
Pastoral Care Encounter/Spiritual Assessment Type of Contact [] Declined phlebotomist associate visit [] Patient/Family/Request visit [] Outpatient visit [] Follow-up visit [] Physician referral [] Code/Alert [XX] Routine visit [] Staff referral [] Actively dying [] Patient sleeping [] Family support [] [] Out of room [] Palliative care [] [] Receiving care in room [] Pre-surgical visit [] Trauma [] Long length of stay [] ICU visit [] Other: Relational/Emotional Strength [XX] Patient feels connected with others/family/visitors/staff [] Distress [] Loneliness/isolation [] Abandonment Spirituality of Patient [XX] Person of Karyn [] Attends Samaritan of their Karyn [XX] Believes in Prayer [XX] Reads Bible or Catholic materials [] There are Spiritual issues to be addressed Family Centered Specialist Interventions [XX] Prayer [XX] Active listening [XX] Non-anxious presence [XX] Spiritual/emotional support [] Crisis/trauma care [] Spiritual counseling [] Bereavement support [] Provided bereavement packet [XX] Provided Bible/devotional materials [] Provided toy/stuffed animal, coloring book to patient or family member [] Provided Communion [] Anointing/[place] [] Salvation [XX] Completed spiritual assessment [] Other: Impact on Illness or Injury [] Angry [] Fearful [] Anxious [] Often cries [] Exhaustion [] Unable to work [] Unable to attend buddhist [] Unable to walk/stand [] Unable to read [] Unable to drive [] Unable to eat/drink [] Unable to sleep [] Unable to be with family [] Patient intubated [] Other: Summary: Pt was in good spirits. Granddaughter was visiting her today. Pt hopeful to be discharged soon to rehab. Prayed with patient and provided devotional materials. Time spent with patient: 15 mins
--- NOTE | 2020-09-29 18:34 | PC.NURSE ---
[address] Gabriel that patient states she takes omeprazole once daily at 0600. We have it scheduled twice daily. can we change the first time to 0600 and then 1800. vd message from Dr Gabriel, okay to change times. content writer put orders in for time change.
--- NOTE | 2020-09-29 18:40 | PC.NURSE ---
notified Dr Gbariel that patient is requesting something for restless leg syndrome.
[2020-09-29] MEDS: enoxaparin 40 mg/0.4 mL Syringe SUBCUT (21:24)
[2020-09-30] VITALS (8 sets, daily range): BP systolic 110–173; BP diastolic 67–80; PULSE 82–96; RESP 17–18; TEMP 36.4–36.9; O2SAT 92–97
[2020-09-30] MEDS: acetaminophen 500 mg Tablet 1000 MG PO ×3 (02:40→17:21)
[2020-09-30] MEDS: CELEcoxib 200 mg Capsule PO ×2 (05:43→17:21)
[2020-09-30] MEDS: levothyroxine 75 mcg Tablet PO (05:43)
--- NOTE | 2020-09-30 05:46 | PC.NURSE ---
SHIFT SUMMARY Pt had a good night. Is very pleasant. Gets up to BSC with minimal assist. Uses walker and does very well. Had BM this am. Has not had anything for pain other than the scheduled po Tylenol ordered. Dressing to lat left hip/thigh D&I. Has swelling and some pinkness to hip. Neurovascular check is WNL. ABD pillow in place. SCD's to BLE.
[2020-09-30] MEDS: albuterol 8 gm MDI 1 PUFF INHALATION ×2 (08:13→20:20)
[2020-09-30] MEDS: calcitonin nasal 200 unit/spray 3.7 mL Btl 1 SPRAY NOSTRIL-AL (08:30)
[2020-09-30] MEDS: atorvastatin 40 mg Tablet 20 MG PO (08:30)
[2020-09-30] MEDS: potassium chloride ER 10 mEq Tablet PO (08:31)
[2020-09-30] MEDS: amlodipine 5 mg Tablet 2.5 MG PO (08:31)
[2020-09-30] MEDS: loratadine 10 mg Tablet 20 MG PO (08:31)
[2020-09-30] MEDS: sennosides-docusate Tablet 2 TAB PO (08:31)
[2020-09-30] MEDS: cefTRIAXone 1,000 MG in sodium chloride 0.9% (plus) 50 ML 100 MG IV (08:31)
[2020-09-30] MEDS: multivitamin therapeutic Tablet 1 TAB PO (08:31)
[2020-09-30] MEDS: gabapentin 300 mg Capsule PO ×2 (08:34→17:21)
--- NOTE | 2020-09-30 10:41 | P.PN_ITS ---
Subjective Subjective: Interval history: No acute event overnight.Patient was seen comfortably sitting in chair. Her Vitals have been reviewed. Medications: Reviewed: Yes Vitals/I&O/Wt Last Vital Signs Temp 98.4 F 09/30/20 07:43 Pulse 92 09/30/20 08:14 Resp 18 09/30/20 08:14 BP 144/67 09/30/20 07:43 Pulse Ox 92 09/30/20 08:14 09/29/20 09/30/20 09/30/20 22:59 06:59 14:59 Intake Total 240 / 530 240 / 770 410 / 410 Output Total 300 / 300 Balance 240 / 530 -60 / 470 410 / 410 Physical Exam Narrative: EXAM NARRATIVE: General -alert awake and oriented HEENT -grossly unremarkable Chest-clear to auscultation bilaterally CVS -regular rate rhythm Abdomen -soft nontender nondistended Extremities -postop pain Urinary Catheter Management^: Cardenas: Cath Placed During This Visit: yes, but has since been removed by the nurse Reason for Continuing Indwelling Catheter: Perioperative Use in Selected Surgeries Urinary Catheter Date of Insertion: 09/25/20 Urinary Catheter Time of Insertion: 23:04 Date Urinary Catheter Removed: 09/27/20 Time Urinary Catheter Discontinued: 06:00 Data : 09/28/20 05:10 09/28/20 05:10 A&P Assessment and plan (1) Closed left hip fracture: Status: Deleted Qualifiers: Encounter type: initial encounter Qualified Code(s): S72.002A - Fract ure of unspecified part of neck of left femur, initial encounter for closed fracture (2) Fall: Status: Acute Additional A&P Information Left femoral neck fracture - POD 3 ORIF - Follow up labs in am - pain control - PT/OT consult Acute kidney injury on likely CKD stage 3 - Creatinine 1.3 - > 1.3 - Repeat CMP in am - Renal dosing. - Stable E-coli UTI - Rocephin 1g IV daily - Harding-sensitive -Will complete 5 days course Hypertension - Resume Norvasc GERD - PPI DVT ppx - per ortho Full code Attestations Medical Necessity Statement*: Patient is awaiting placement. Coding Level of Care Code Acute Senior Accounting Specialist for Brian Traore Diagnoses Closed left hip fracture S72.002A Encounter type: initial encounter Fall W19.XXXA
--- NOTE | 2020-09-30 10:52 | PC.SOCIAL ---
IMM Update Pg.2 of IMM Updated and reviewed with patient who verbalized understanding. Copy provided.
[2020-09-30] MEDS: enoxaparin 40 mg/0.4 mL Syringe SUBCUT (21:25)
[2020-10-01] VITALS (8 sets, daily range): BP systolic 144–187; BP diastolic 64–83; PULSE 82–88; RESP 16–18; TEMP 36.5–36.8; O2SAT 84–96
[2020-10-01] MEDS: acetaminophen 500 mg Tablet 1000 MG PO ×2 (01:43→09:19)
[2020-10-01 03:12] LABS: Basophils # 0.1 10^3/uL (0.0-0.1); Basophils % 0.7 %; Eosinophils # 0.2 10^3/uL (0.0-0.8); Eosinophils % 2.6 %; Hematocrit 30.1 % (37.0-47.0); Hemoglobin 9.6 g/dL (11.5-15.3); Lymphocytes # 1.1 10^3/uL (0.8-4.8); Lymphocytes % 12.7 %; Mean Corpuscular HGB Conc 31.9 g/dL (30.0-36.0); Mean Corpuscular Hemoglobin 28.2 pg (28.0-34.0); Mean Corpuscular Volume 88.3 fL (81-99); Mean Platelet Volume 10.1 fL (7.4-10.4); Monocytes # 0.5 10^3/uL (0.2-0.9); Monocytes % 6.3 %; Neutrophils # 6.63 10^3/uL (1.8-7.7); Neutrophils % 77.2 %; Nucleated Red Blood Cells % 0 %; Platelet Count 287 10^3/cmm (130-400); Red Blood Count 3.41 10^6/uL (4.1-5.3); Red Cell Distribution Width 14.3 % (12.1-15.1); White Blood Count 8.6 10^3/uL (4.0-10.0)
[2020-10-01 04:00] LABS: Alanine Aminotransferase 6 U/L (0-33); Albumin Level 2.5 g/dL (3.5-5.2); Alkaline Phosphatase 73 IU/L (35-105); Anion Gap 13.3 (5-19); Aspartate Amino Transferase 29 U/L (0-32); Blood Urea Nitrogen 35 mg/dL (8-23); Calcium 8.2 mg/dL (8.5-10.5); Carbon Dioxide 24 mmol/L (22-29); Chloride 105 mmol/L (98-107); Globulin 3.3 g/dL (1.3-4.6); Glucose 107 mg/dL (65-115); Osmolality Calculated 296 mOsm/kg (285-295); Potassium 3.3 mmol/L (3.5-5.1); Sodium 139 mmol/L (136-145); Total Bilirubin 0.4 mg/dL (0.15-1.2); Total Protein 5.8 g/dL (6.6-8.7)
[2020-10-01] MEDS: levothyroxine 75 mcg Tablet PO (06:05)
[2020-10-01] MEDS: CELEcoxib 200 mg Capsule PO (06:05)
--- NOTE | 2020-10-01 06:27 | PC.NURSE ---
SHIFT SUMMARY Has done well tonight. Had trouble getting to sleep. c/o minimal pain in left hip and only taking the scheduled Tylenol for pain. Ambulates with walker and nurse standby and does well. Does have some SOB with exertion. O2 in place. BM this morning and was still loose. Says was loose all day yesterday and wants to be sure doesn't take any stool softeners today.
--- NOTE | 2020-10-01 08:15 | PM.DCS ---
Discharge Providers Date of Admission: 09/25/20 19:44 Date of Discharge: October 01, 2020 Attending Provider at Admission: Yohan Miranda MD Attending Provider at Discharge: Robby Dorsey MD Primary Care Provider: Howard Castro MD Diagnoses at Discharge Discharge Diagnosis (1) Closed left hip fracture: Status: Deleted Qualifiers: Encounter type: initial encounter Qualified Code(s): S72.002A - Fracture of unspecified part of neck of left femur, initial encounter for closed fracture (2) Fall: Status: Acute Reason for Visit Reason for Visit: fall Hospital Course Hospital Course 80 year old female with PMH of HTN,GERD (gastroesophageal reflux disease),DLD, Hypothyroidism,Nontoxic multinodular goiter, was admitted after fall at home. Patient stated that she lost her balance when she was maneuvering around her plant pots, she lost her balance because there was a towel underneath the pot which she did not notice while turning and fell on left side of her pelvis on the wooden floor. She did not experience any chest pain shortness of breath nausea, vomiting seizure-like activities before this event. She was awake, no syncopal event was noticed. Diagnostics in the ER revealed Left displaced femoral neck fracture,s/p Left bipolar hip.Post repair she has done well and has been cleared by ortho to be discharged to SNF.She was also managed for E-coli UTI was on Rocephin 1g IV daily during the hospital stay for 3 days and being discharged on 3 days of levofloxacin 500 mg po. Patient responded well Physical Exam Narrative: EXAM NARRATIVE: EXAM NARRATIVE: General -alert awake and oriented HEENT -grossly unremarkable Chest-clear to auscultation bilaterally CVS -regular rate rhythm Abdomen -soft nontender nondistended Extremities -postop pain Urinary Catheter Management^: Cardenas: Cath Placed During This Visit: yes, but has since been removed by the nurse Reason for Continuing Indwelling Catheter: Perioperative Use in Selected Surgeries Urinary Catheter Date of Insertion: 09/25/20 Urinary Catheter Time of Insertion: 23:04 Date Urinary Catheter Removed: 09/27/20 Time Urinary Catheter Discontinued: 06:00 Discharge Data Data Completed and Pending: Completed Studies During Hospitalization Category Date Time Status XR chest 1V rao ble 04369 Stat Exams 09/25/20 19:14 Completed XR hip LT 2-3V wo /w pel* 18023 Stat Exams 09/25/20 19:13 Completed XR pelvis 1-2V* 7 2170 Routine Exams 09/26/20 15:55 Completed Vitals: Last Vital Signs Temp 97.6 F 09/30/20 11:12 Pulse 96 09/30/20 11:12 Resp 17 09/30/20 11:12 BP 110/75 09/30/20 11:12 Pulse Ox 93 09/30/20 11:12 Discharge Plan Discharge Patient Disposition: Home Condition: Stable Prescriptions: New levofloxacin 500 mg tablet 500 mg PO DAILY 3 Days RF: 0 No Action budesonide-formoterol [Symbicort] 160-4.5 mcg/actuation HFA aerosol inhaler 2 puff INHALATION BID RF: 0 albuterol sulfate [ProAir HFA] 90 mcg/actuation HFA aerosol inhaler 1 inh INHALATION QID PRN (Reason: shortness of breath or wheezing) Qty: 3 RF: 3 calcitonin (salmon) 200 unit/actuation spray,non-aerosol 1 spray intranasal (ALT) DAILY Qty: 3 RF: 3 multivitamin Tablet 1 tab PO DAILY@09 RF: 0 meloxicam 15 mg tablet 15 mg PO DAILY@09 RF: 0 amlodipine 2.5 mg tablet 2.5 mg PO DAILY@09 RF: 0 potassium chloride 10 mEq tablet extended release 10 meq PO DAILY@09 RF: 0 triamterene-hydrochlorothiazid 37.5-25 mg capsule 1 cap PO DAILY@09 RF: 0 Synthroid 75 mcg tablet 75 mcg PO DAILY@06 RF: 0 Calcium 600 600 mg calcium (1,500 mg) Tablet 600 mg PO BID RF: 0 simvastatin 20 mg tablet 20 mg PO DAILY@09 RF: 0 raloxifene 60 mg tablet 60 mg PO DAILY@09 RF: 0 Claritin 10 mg Tablet 20 mg PO DAILY@09 RF: 0 Discharge Orders: Discharge Order (Routine); Ordered 10/01/20 Ordered By: Lucho Anna Other Ambulatory Orders: DME: Oxygen (Order) Location: None Selected Ordered By: Robby Dorsey DME: Walker (Order) Location: None Selected Ordered By: Lucho Anna Referrals: Howard Castro MD [Primary Care Provider] - 10/08/20 9:45 am Lucho Anna MD [Physician] - 10/29/20 9:00 am Discharge Diet: Low Salt Discharge Activity: Increase activity as tolerated Patient Instructions: Levofloxacin (By mouth), Total Hip Replacement (DC), Fall Prevention (DC) Activity Restrictions/Additional Instructions: Okay to shower. May discontinue dressing once no longer sealed. Thereafter dressing not required. Take Tylenol 325mg (up to tabs) 3 times a day for mild pain Exercises per physical therapy. May weight-bear as tolerated on hip arthroplasty Discharge Attestations Time Spent in Discharge Care*: greater than 30 min Specific Discharge Activities: educating patient, educating and/or supporting family/caregiver, discussing with pcp/other providers, discussing with director case/social workers/dc planners, documenting/other paperwork and evaluating patient/reviewing data Status at Discharge: Cognitive status at discharge: cognitively intact, Behavioral status at discharge: cooperative, Functional status at discharge: other assisted ambulation Overall status at discharge: patient is back to baseline Quality Metrics Clinical Quality Measures During this hospital stay, did patient experience: None Coding Level of Care Code Acute Data Scientist for Brian Traore Diagnoses Closed left hip fracture S72.002A Encounter type: initial encounter Fall W19.XXXA
[2020-10-01] MEDS: gabapentin 300 mg Capsule PO (08:18)
[2020-10-01] MEDS: multivitamin therapeutic Tablet 1 TAB PO (08:18)
[2020-10-01] MEDS: potassium chloride ER 10 mEq Tablet PO (08:18)
[2020-10-01] MEDS: cefTRIAXone 1,000 MG in sodium chloride 0.9% (plus) 50 ML 100 MG IV (08:18)
[2020-10-01] MEDS: loratadine 10 mg Tablet 20 MG PO (08:18)
[2020-10-01] MEDS: amlodipine 5 mg Tablet 2.5 MG PO (08:18)
[2020-10-01] MEDS: atorvastatin 40 mg Tablet 20 MG PO (08:18)
[2020-10-01] MEDS: albuterol 8 gm MDI 1 PUFF INHALATION (08:28)
[2020-10-01] MEDS: calcitonin nasal 200 unit/spray 3.7 mL Btl 1 SPRAY NOSTRIL-AL (09:19)
--- NOTE | 2020-10-01 12:14 | PM.PN ---
Subjective Subjective: Interval history: Takes Tylenol for pain. Independent with walker. Vitals/I&O/Wt Last Vital Signs Temp 97.7 F 10/01/20 11:18 Pulse 88 10/01/20 11:18 Resp 17 10/01/20 11:18 BP 155/83 10/01/20 11:18 Pulse Ox 95 10/01/20 11:18 09/30/20 10/01/20 10/01/20 22:59 06:59 14:59 Intake Total 300 / 950 200 / 1150 410 / 410 Balance 300 / 950 200 / 1150 410 / 410 Physical Exam Narrative: EXAM NARRATIVE: Left hip dressing clean and dry. Urinary Catheter Management^: Cardenas: Cath Placed During This Visit: yes, but has since been removed by the nurse Reason for Continuing Indwelling Catheter: Perioperative Use in Selected Surgeries Urinary Catheter Date of Insertion: 09/25/20 Urinary Catheter Time of Insertion: 23:04 Date Urinary Catheter Removed: 09/27/20 Time Urinary Catheter Discontinued: 06:00 Data : 10/01/20 02:09 10/01/20 02:09 A&P Assessment and plan (1) Postoperative state: Patient has made good progress with therapy. She has a granddaughter will check at home. She states the financial cost of long-term prohibit it in her case. She request nothing more than Tylenol for pain. She will be weightbearing as tolerated. She will follow up in my clinic in a month. Status: Acute (2) Left displaced femoral neck fracture: Status: Resolved Attestations Medical Necessity Statement*: Okay for discharge per Ortho Coding Level of Care Code Acute Adoption Worker for Brian Traore Diagnoses Postoperative state Z98.890 Left displaced femoral neck fracture S72.002A
--- NOTE | 2020-10-01 13:43 | PC.NURSE ---
Dr Dorsey called and said he is good with patient being discharged with Dr Anna's discharge orders.
--- NOTE | 2020-10-01 14:10 | PC.NURSE ---
patient and family given discharge instructions and verbalized understanding of instructions. patient taken to private vehicle via wheelchair by life insurance underwriter.
== END 2020-10-01 14:13 | disposition home health service (06) | DRG 522 ==
LOC: ER 19:47 → MEDSURG 21:06
PROVIDERS: Hospitalist; Orthopaedic Surgery; Admitting Provider Internal Medicine; Emergency Provider Emergency Medicine; PCP Internal Medicine; Visit Provider Internal Medicine
PROC: 0SRS0J9 Replacement of Left Hip Joint, Femoral Surface with Synthetic Substitute, Cemented, Open Approach (ICD-10-PCS; CPT 27125; principal; 2020-09-26 13:10)
DX: S72.002A Fracture of unspecified part of neck of left femur, initial encounter for closed fracture (principal); N17.9 Acute kidney failure, unspecified; N39.0 Urinary tract infection, site not specified; W01.0XXA Fall on same level from slipping, tripping and stumbling without subsequent striking against object, initial encounter; K44.9 Diaphragmatic hernia without obstruction or gangrene; I12.9 Hypertensive chronic kidney disease with stage 1 through stage 4 chronic kidney disease, or unspecified chronic kidney disease; N18.30 Chronic kidney disease, stage 3 unspecified; J43.9 Emphysema, unspecified; K21.9 Gastro-esophageal reflux disease without esophagitis; E78.5 Hyperlipidemia, unspecified; M19.90 Unspecified osteoarthritis, unspecified site; E89.0 Postprocedural hypothyroidism; Z87.891 Personal history of nicotine dependence; B96.20 Unspecified Escherichia coli [E. coli] as the cause of diseases classified elsewhere
CPT/HCPCS: 12345; 36415; 51702; 71045; 72170; 73502; 80048; 80053; 81001; 85025; 85610; 87077; 87086; 87186; 87426; 93005; 94640; 96372; 97110; 97116; 97161; 97166; 97530; 97535; 99283; C1776; J0690; J0696; J1170; J1580; J1650; J2175; J2270; J2405; J2704; J3010; J3490; J3535; J7030; J7611; J7799

== ENCOUNTER → 2020-10-29 08:53 | Outpatient (BNVA) | payer MEDICARE, SELFPAY | PROVIDERS: PCP Internal Medicine; Visit Provider Orthopaedic Surgery | DX: Z47.1 Aftercare following joint replacement surgery (principal); Z96.642 Presence of left artificial hip joint | CPT/HCPCS: 73502 ==

== ENCOUNTER 2021-02-26 11:49 | Outpatient (CLI) | payer MEDICARE, SELFPAY ==
--- NOTE | 2021-02-26 12:05 | XR_ITS ---
WS: [id number] Left hip, 2 views, 02/26/2021 Clinical Data: Pain after hip surgery Comparison: Pelvis and left hip, 10/29/2020. Findings: No fractures or dislocations are seen. The left hip arthroplasty remains in good position. No looseni ng is seen. The soft tissues are not remarkable. The adjacent pelvis is normal. The left SI joint and the pubic symphysis are unremarkable. XR/XR hip LT 2-3V wo/w pel* [id number] Impression: No change in left hip arthroplasty Tonnis classification: NA
== END 2021-02-26 11:50 | disposition home or self-care (01) ==
PROVIDERS: PCP Internal Medicine; Visit Provider Internal Medicine
DX: M25.552 Pain in left hip (principal); E03.9 Hypothyroidism, unspecified; I10 Essential (primary) hypertension; E04.2 Nontoxic multinodular goiter; K21.9 Gastro-esophageal reflux disease without esophagitis; Z96.642 Presence of left artificial hip joint
CPT/HCPCS: 73502; 80053; 80061; 83550; 84443; 85025

== ENCOUNTER 2021-03-12 10:07 | Outpatient (CLI) | payer MEDICARE, SELFPAY ==
--- NOTE | 2021-03-12 10:20 | US_ITS ---
WS: [id number] ULTRASOUND THYROID TECHNIQUE: Ultrasound of the thyroid. CLINICAL INFORMATION: HYPOTHYROIDISM COMPARISON: January 17, 2020. Additional ultrasound thyroid examinations dating back to 2014. FINDINGS: Thyroid: Right and left thyroid lobes are normal in size and echotexture. Right thyroidectomy. Left thyroid lobe: 2.8 cm x 1.1 cm x 1.0 cm. Several tiny incidental colloid cysts are unchanged. Mid to lower pole slightly complex nodule today measures 4.1 x 2.4 x 2.4 mm unchanged from previous Isthmus: 0.3 mm. Cervical lymphadenopathy: No lymphadenopathy. US/US thyroid 32847 IMPRESSION: 1. Prior right thyroidectomy. Thyroidectomy bed is normal in appearance. 2. Several tiny incidental colloid cysts are unchanged. 3. Mid to lower pole slightly complex nodule today measures 4.1 x 2.4 x 2.4 mm unchanged from previous
== END 2021-03-12 10:08 | disposition home or self-care (01) ==
LOC: US 10:11
PROVIDERS: PCP Internal Medicine; Visit Provider Internal Medicine
DX: E89.0 Postprocedural hypothyroidism (principal); E04.1 Nontoxic single thyroid nodule
CPT/HCPCS: 76536

== ENCOUNTER 2022-01-28 10:19 | Outpatient (CLI) | payer MEDICARE, SELFPAY ==
--- NOTE | 2022-01-28 10:25 | XRR_ITS ---
PROCEDURE INFORMATION: Exam: XR Chest Exam date and time: 01/28/2022 10:25 AM Age: 81 years old Clinical indication: Cough TECHNIQUE: Imaging protocol: XR of the chest. Views: 2 views. COMPARISON: CR XR chest 1V portable [id number] 09/25/2020 7:15 PM FINDINGS: Lungs: There are calcified granulomas in both lungs. There is no consolidation. Pleural spaces: There is bilateral apical pleural calcification. No pneumothorax or pleural effusion. Heart/Mediastinum: Cardiomediastinal contours are unremarkable. There is a partially gas-filled retrocardiac mass consistent with a hiatal hernia. Bones/joints: There are chronic compression fractures at T9 and T12, stable since 2017. XR/XR chest 2V* [id number] IMPRESSION: 1. No acute findings. 2. Hiatal hernia.
== END 2022-01-28 10:20 | disposition home or self-care (01) ==
LOC: RAD 10:22
PROVIDERS: PCP Internal Medicine; Visit Provider Internal Medicine
DX: R05.3 Chronic cough (principal); K44.9 Diaphragmatic hernia without obstruction or gangrene
CPT/HCPCS: 71046

== ENCOUNTER 2022-07-06 06:41 | Outpatient (CLI) | payer MEDICARE, SELFPAY ==
--- NOTE | 2022-07-06 | ECG_ITS ---
[facility] Test Date: 2022-07-06 Pat Name: Melisa Carrillo Department: Room: Gender: Female Merchandising Intern: Carolyn Ball : 1940 Requested By: Howard Castro Order Number: [id number] Amilcar MD: Logan Merida M.D. Interpretive Statements NAME OF STUDY: LEXISCAN SESTAMIBI STRESS TEST INDICATION: Chest Pain, PROCEDURE: At the baseline, the EKG revealed normal sinus rhythm with a first-degree AV block. Poor R wave progression no significant ST-T changes. The baseline heart was 73 bpm with a blood pressue of 157/72 mm of Hg Lexiscan was infused over a period of 20 seconds. A total of 0.4 milligrams of Lexiscan was infused. The stress phase was continued for a total of 5 minutes. Heart rate at the end of the stress phase was 89 bpm with a blood pressure 137/64 mm of Hg. The EKG at the peak infusion revealed no significant changes. Sestamibi was injected 20 seconds after the Lexiscan infusion. Heart rate at the end of the recovery phase was 87 bpm with a blood pressure of 137/64 mm of Hg. CONCLUSION: 1. No significant EKG changes with the LexiScan infusion 2. No LexiScan induced chest pain or cardiac arrhythmia 3. Normal blood pressure and heart rate response 4. Sestamibi/sestamibi perfusion scan pending; see separate report. Electronically Signed On 07-10-2022 8:45:43 CREDIT REPORT CHECKER by Logan Merida M.D. [id number]
[2022-07-06 07:08] VITALS: BMI 20.3
--- NOTE | 2022-07-06 07:10 | NMCV_ITS ---
NM nallely perf SPECT r/s* [id number] Melisa Carirllo Age: 81 Gender: F : 1940 Exam Date: 07/06/2022 07:57 Ordering Phys: Howard Castro MD Technologist: HAI Priest Exam Location: [facility] Indications: CHEST PAIN STRESS TEST Please see separate stress test report in [facility] for full findings IMAGE PROTOCOL Rest/Stress 1 Lexiscan Day Radiopharmaceutical Dose (mCi) Administration Site Administered by Rest: Tc-99m 9.7 IV HAI Rendon Sestamibi Stress:Tc-99m 32.2 IV HAI Priest Sestamiarlette Rest: 06-Jul-2022 60 Discovery 630 Stress: 06-Jul-2022 30 Discovery 630 0.4mg Lexiscan. Supine position only as patient was unable to lay prone. SPECT RESULTS Technical Quality: Excellent Raw Data Analysis: Normal Image Corrections: No attenuation or motion correction applied Summed Stress Score: 6 Summed Rest Score: 0 Summed Difference Score: 6 PERFUSION FINDINGS Moderate area of moderately decreased tracer uptake in the basal and mid inferolateral, mid anterolateral and apical lateral regions. Almost complete reversibility was noted in these regions FUNCTIONAL RESULTS (calculated via Gated SPECT) Stress Image LV EF (%): 77 Stress EDV (mL):78 TID: 1.09 Stress ESV (mL):18 FUNCTIONAL FINDINGS: Segmental wall motion analysis revealing no gross wall motion normalities. IMPRESSIONS 1. Myocardial perfusion imaging revealing moderate area of reversible defect in the inferolateral, apical lateral and mid anterolateral regions suggesting ischemia in the distribution of the left circumflex artery. 2. Normal LV ejection fraction 77%. 3. LV wall motion analysis revealing no gross wall motion abnormalities. 4. Normal LV volume No similar previous studies are available for comparison Dr Logan Merida MD [facility] (Electronically Signed) Final Date: 06 July 2022 17:41 S
[2022-07-06] MEDS: regadenoson 0.4 Mg/5 ml Syringe IVP (09:00)
[2022-07-06 09:10] VITALS: BP 137/64; PULSE 86
== END 2022-07-06 06:42 | disposition home or self-care (01) ==
PROVIDERS: PCP Internal Medicine; Visit Provider Internal Medicine
DX: R07.9 Chest pain, unspecified (principal); R11.0 Nausea; R94.39 Abnormal result of other cardiovascular function study
CPT/HCPCS: 78452; 93017; A9500; J2785

== ENCOUNTER → 2022-07-22 14:08 | Outpatient (BNVA) | payer MEDICARE, SELFPAY | PROVIDERS: PCP Internal Medicine; Visit Provider Internal Medicine Cardiovascular Disease | DX: R94.39 Abnormal result of other cardiovascular function study (principal); R07.9 Chest pain, unspecified; E03.9 Hypothyroidism, unspecified; I10 Essential (primary) hypertension; E78.5 Hyperlipidemia, unspecified; Z87.891 Personal history of nicotine dependence | CPT/HCPCS: 99205 ==

== ENCOUNTER 2022-08-11 07:10 | Outpatient (CLI) | payer MEDICARE, SELFPAY ==
[2022-08-11] VITALS (12 sets, daily range): BP systolic 107–178; BP diastolic 45–78; PULSE 56–65; RESP 13–22; TEMP 37.1; O2SAT 92–98; BMI 21.2
--- NOTE | 2022-08-11 07:30 | XACV_ITS ---
Ht: 170 cm Wt: 62 kg BSA: 1.71 m2 Gender: Female : 1940 Any Known Allergies: No known allergies Exam Priority: Routine Procedure(s): Procedure Description: Diagnostic procedure Procedure Description: Left Heart Catheterization Procedure Description: Left ventriculography Procedure Description: Coronary Angiography Fuad HOGUE; Diagnostic Cath Status: Elective Diagnostic Findings * The left main is a medium caliber vessel with minimal intimal irregularities. * The left anterior descending artery is a medium caliber vessel which appears to wrap around the LV apex minimally. The proximal and mid LAD was found to have mild to moderate diffuse calcification. No significant stenotic lesions were noted. * Left circumflex artery is a medium caliber nondominant vessel with a 40% narrowing at the takeoff of the first obtuse marginal branch. The first obtuse marginal vessel is a relatively small caliber vessel with a 95% ostial stenosis. * The right coronary artery is a medium caliber dominant vessel which was found to have around 30% segmental narrowing proximally. At the mid segment, there was a 50% concentric narrowing. The PDA and the PLV branches are found to have no significant stenotic lesions. Conclusions 1. 80-year-old white female with multiple risk factors for coronary artery disease, presenting with new onset of chest pain. She had a Myocardial perfusion imaging which an area of reversible defect in the distribution of the left circumflex artery suggesting ischemia. She continued to have recurrent episodes of chest pain. For further evaluation of the coronary status, a cardiac catheterization was recommended. Patient underwent left and right coronary angiogram today. The findings are as follows. 2. Mild to moderate diffuse coronary calcification in the left anterior descending artery. A high-grade ostial lesion in the relatively small caliber obtuse marginal vessel. 40 to 50% segmental lesions in the right coronary artery and in the circumflex artery. 3. I reviewed and discussed the cardiac catheterization data with the Dr. Huynh. Considering the small caliber vessel and the technical difficulties in performing the percutaneous intervention, it was thought to be appropriate to maximize the medical treatment and then consider PCI, if she continues to have chest pains. Diagnostic RX Recommendation: medical therapy and/or counseling Left Ventriculography Findings: * LV gram was not performed because of difficulty in advancing the pigtail catheter, due to severe spasm in the brachial artery. Pressures Phase:Rest AO : / ( 0 ) @ 8:37:00 AM 149 / 57 ( 92 ) @ 8:42:00 AM 128 / 54 ( 85 ) @ 8:46:00 AM 127 / 54 ( 86 ) @ 8:46:00 AM Clinical Evaluation EBL: 5mL-10mL Procedural Details Procedure Consent Obtained. Pre-Procedure Time Out. Identified patient by full name and date of as verbalized by the patient/guarantor. Does the consent match the physician's order: Yes. Accurate & Complete Informed Consent: Yes. Inpatient/Outpatient History & Physical on Chart: Yes. If H&P is completed, is and addenduem needed: No; If yes, is the addendum complete: N/A. Visualize and Verify Site with Patient/Guarantor: N/A. Relevant Radiology Images available: N/A. The risks, benefits, and alternatives of sedation and/or procedure were discussed by physician. The patient agrees to continue. Procedure started. [facility] Clinical Fraility Score: 3: Managing Well. Newspaper Delivery Counselor Indications: Stable Known CAD. Chest Pain Symptom Assessment: Typical Angina Symptoms. Cardiovascular Instability: No, stable. Correct patient, site and procedure confirmed by cath team. Current diagnosis: ASHD, KNOWN CAD. PERRLA. Strong, equal hand hull inspector bilaterally. Lungs clear x 5 lobes. IV Site on Arrival: 20 gauge in the right anticubital. IV Fluids: 0.9% NaCl at KVO. 0 mL infused prior to label stitcher. Pre Procedural Pulses: bilateral posterior tibial was Doppled. Pre Procedural Pulses: bilateral dorsalis pedis was Doppled. Pre Procedural Pulses: bilateral radial was 2+. Oxygen started at 3liters/min via nasal canula. right groin was prepped with chloroprep then draped in the usual sterile fashion. right radial was prepped with chloroprep then draped in the usual sterile fashion. Physician notified. Baseline sample Acquired. HR: 85 BPM. Physician arrived. Physician scrubbed in. Current Diagnosis : Chest Pain. Immediate Pre-Procedure Time Out. Correct Patient: Yes; Correct Procedure: Yes; Correct Site: Yes; Correct Patient Position: Yes; Correct Supplies: Yes; Dried Flammable Prep: Yes; Blood Products Available: N/A;. Lidocaine 1% infiltrated to the right radial. Arterial access obtained. A 5 fijian Mahad catheter in over wire. Multiple views taken of left coronary artery. Catheter redirected to the RCA. Unable to cannulate the RCA. Catheter removed over the exchange wire. A 5 fijian JR4 catheter in over wire. Multiple views taken of right coronary artery. Dr Huynh notified to review films. Exchange wire inserted. Attempting to cross valve. Catheter removed over the wire. A 5 fijian Angled Pig catheter in over wire. Dr Huynh/Dr Merida to review films. Unable to perform LV d/t spasm. Catheter removed over the wire. Physician scrubbed out. A TR Band was successful obtaining hemostatsis at the Right Radial artery insertion site. TR band placed. Hemostasis obtained. Post Procedure: Pulses reassessed and unchanged. PERRLA. Strong, equal hand hull inspector bilaterally. No VTE prophylaxis required. Medication waste: Lido- 6 ml, Heparin- 1000 units, Nitro- 49.9 mg, Fentanyl- 25 mcg. Total IV fluids: 267 mL. Fluoro: 8:03. Contrast type used: Omnipaque 300 mg/mL, 150 mL bottle. [id number]. Complications: None. Estimated blood loss: 5mL-10mL. Responsiveness - Normal response to verbal stimuli; alert and oriented, PERRLA. Airway - Unaffected, no intervention required; spontaneous ventilation. Circulation: W/N/L, pulses unchanged. Nausea/Vomiting: No. Procedure completed. Patient transferred by wheelchair to CPRU. Post-op diagnosis: Single Vessel CAD. Access Site Site: Right Radial artery Sheath Size: 6 Fr Hemostasis Method: TR Band Hemostasis Success: Successful Procedure Medications Start: 8:32 AM Stop: 8:32 AM Medication: Versed 1 mg and Fentanyl 25 mcg Amount: 1 Route: I.V. Start: 8:37 AM Stop: 8:37 AM Medication: Versed Amount: 1 mg Route: I.V. Start: 8:38 AM Stop: 8:38 AM Medication: Verapamil Amount: 5 mg Route: I.A. Start: 8:39 AM Stop: 8:39 AM Medication: Nitrogylcerin Amount: 100 mcg Route: I.A. Start: 8:39 AM Stop: 8:39 AM Medication: 0.9% Saline Amount: 250 ml Route: I.V. bolus Start: 8:41 AM Stop: 8:41 AM Medication: Heparin Amount: 5000 units Route: I.V. Start: 8:46 AM Stop: 8:46 AM Medication: Fentanyl Amount: 25 mcg Route: I.V. Start: 8:53 AM Stop: 8:53 AM Medication: Fentanyl Amount: 25 mcg Route: I.V. I, the attending physician, have reviewed and verified all procedure medications. Yes, all medications given per verbal order History/Risk Factors Hypertension: Yes Dyslipidemia: Yes Peripheral Arterial Disease (PAD): No Myocardial Infarction (RI): No Obesity: No Renal Disease: No Prior Interventions PCI: No CABG: No Valve Surgery: No Report Signatures Finalized by Dr Logan Merida MD [facility] on 08/11/2022 10:33 PM
[2022-08-11] MEDS: diphenhydrAMINE 50 mg Capsule PO (07:31)
[2022-08-11 07:58] LABS: Basophils # 0.1 10^3/uL (0.0-0.1); Basophils % 1.4 %; Eosinophils # 0.3 10^3/uL (0.0-0.8); Eosinophils % 3.7 %; Hematocrit 36.9 % (37.0-47.0); Hemoglobin 11.5 g/dL (11.5-15.3); Lymphocytes # 1.9 10^3/uL (0.8-4.8); Lymphocytes % 22.8 %; Mean Corpuscular HGB Conc 31.2 g/dL (30.0-36.0); Mean Corpuscular Hemoglobin 27.6 pg (28.0-34.0); Mean Corpuscular Volume 88.5 fl (81-99); Mean Platelet Volume 9.9 fL (7.4-10.4); Monocytes # 0.9 10^3/uL (0.2-0.9); Monocytes % 10.6 %; Neutrophils # 5.19 10^3/uL (1.8-7.7); Neutrophils % 61.1 %; Nucleated Red Blood Cells % 0 %; Platelet Count 301 10^3/cmm (130-400); Red Blood Count 4.17 10^6/uL (4.1-5.3); Red Cell Distribution Width 14.7 % (12.1-15.1); White Blood Count 8.5 10^3/uL (4.0-10.0)
[2022-08-11 08:13] LABS: Anion Gap 14.7 (5-19); Blood Urea Nitrogen 42 mg/dL (8-23); Calcium 9.4 mg/dL (8.5-10.5); Carbon Dioxide 23 mmol/L (22-29); Chloride 106 mmol/L (98-107); Glucose 88 mg/dL (65-115); Osmolality Calculated 300 mOsm/kg (285-295); Potassium 3.7 mmol/L (3.5-5.1); Sodium 140 mmol/L (136-145)
--- NOTE | 2022-08-11 08:28 | P.HPUD_ITS ---
Surgery/Procedure H&P Update DATE OF PROCEDURE: August 11, 2022 DATE H&P PERFORMED: 07/22/22 H&P UPDATE INFORMATION: I have reviewed H&P completed within last 30 days, I have examined patient prior to procedure and No changes to prior documentation PREOP DIAGNOSIS: ASHD PRIMARY INDICATION FOR PROCEDURE: chest pain, Abnormal MPI PLANNED PROCEDURE: Operation Date: 08/11/22 08:30 Proposed Procedures p [facility] W- W/O 15745 R94.39(Left) - Logan Merida MD PATIENT REASSESSED PRIOR TO SEDATION, WITH NO CHANGE NOTED: Yes PHYSICAL EXAM: alert, clear to auscultation bilaterally and regular rate & rhythm AIRWAY EVAL/ANESTHESIA PLAN: normal airway, see other exam findings, ASA II, Monitored Anesthesia, Local Anesthesia, Risks, benefits & alternatives of sedation and/or procedure discussed and Patient agrees to continue as planned
--- NOTE | 2022-08-11 09:00 | SUR.PHASEII ---
Received the patient back from the laborer via wheelchair s/p diagnostic [facility]. She ambulated to the bed without difficulty. Alert and oriented x 3. property assessment monitor placed and vital signs obtained. TR band to the right wrist intact. Wrist soft, with no hematoma noted. A small area of bruising was noted and marked just above the band. Will monitor closely. Family at bedside.
--- NOTE | 2022-08-11 10:00 | SUR.PHASEII ---
Letting the air out of the TR band per protocol.
--- NOTE | 2022-08-11 11:45 | SUR.PHASEII ---
TR band off since 1115. No bleeding or hematoma noted. Wrist soft. Brusing still marked from post cath. Patient sitting up at bedside for lunch after ambulating to the restroom. Family remain at bedside. Plan to discharge home [id number].
== END 2022-08-11 07:11 | disposition home or self-care (01) ==
PROVIDERS: PCP Internal Medicine; Visit Provider Internal Medicine Cardiovascular Disease
DX: I25.10 Atherosclerotic heart disease of native coronary artery without angina pectoris (principal); I10 Essential (primary) hypertension; E78.5 Hyperlipidemia, unspecified; Z87.891 Personal history of nicotine dependence; Z82.49 Family history of ischemic heart disease and other diseases of the circulatory system; Z79.82 Long term (current) use of aspirin; J43.9 Emphysema, unspecified
CPT/HCPCS: 36415; 80048; 85025; 93454; 96361; 96365; 99152; 99153; C1769; C1887; C1894; J1644; J2250; J3010; J3490; J7030; Q0163; Q9967

== ENCOUNTER → 2022-08-19 13:46 | Outpatient (BNVA) | payer MEDICARE, SELFPAY | PROVIDERS: PCP Internal Medicine; Visit Provider Internal Medicine Cardiovascular Disease | DX: I25.10 Atherosclerotic heart disease of native coronary artery without angina pectoris (principal); I10 Essential (primary) hypertension; E04.2 Nontoxic multinodular goiter; K21.9 Gastro-esophageal reflux disease without esophagitis; E03.9 Hypothyroidism, unspecified; Z87.891 Personal history of nicotine dependence | CPT/HCPCS: 99214 ==

== ENCOUNTER → 2022-12-01 13:49 | Outpatient (BNVA) | payer MEDICARE, SELFPAY | PROVIDERS: PCP Family Medicine; Visit Provider Internal Medicine Cardiovascular Disease | DX: I25.10 Atherosclerotic heart disease of native coronary artery without angina pectoris (principal); E78.5 Hyperlipidemia, unspecified; I10 Essential (primary) hypertension; E03.9 Hypothyroidism, unspecified; K21.9 Gastro-esophageal reflux disease without esophagitis; Z87.891 Personal history of nicotine dependence; Z79.82 Long term (current) use of aspirin | CPT/HCPCS: 99214 ==

== ENCOUNTER → 2024-12-11 10:14 | Outpatient (BNVA) | payer MEDICARE, SELFPAY | PROVIDERS: PCP Family Medicine; Visit Provider Internal Medicine Cardiovascular Disease | DX: I49.9 Cardiac arrhythmia, unspecified (principal); I10 Essential (primary) hypertension; I25.10 Atherosclerotic heart disease of native coronary artery without angina pectoris; E78.5 Hyperlipidemia, unspecified; E03.9 Hypothyroidism, unspecified; K21.9 Gastro-esophageal reflux disease without esophagitis; Z87.891 Personal history of nicotine dependence; Z79.82 Long term (current) use of aspirin | CPT/HCPCS: 99214 ==

== ENCOUNTER → 2025-07-30 11:10 | Outpatient (BNVA) | payer MEDICARE, SELFPAY | PROVIDERS: PCP Family Medicine; Visit Provider Internal Medicine Cardiovascular Disease | DX: I25.10 Atherosclerotic heart disease of native coronary artery without angina pectoris (principal); I12.9 Hypertensive chronic kidney disease with stage 1 through stage 4 chronic kidney disease, or unspecified chronic kidney disease; N18.31 Chronic kidney disease, stage 3a; E78.5 Hyperlipidemia, unspecified; E03.9 Hypothyroidism, unspecified; K21.9 Gastro-esophageal reflux disease without esophagitis; Z87.891 Personal history of nicotine dependence | CPT/HCPCS: 99214 ==